=== PATIENT | female | born 1950 | race Caucasian/White ===

== ENCOUNTER 2016-12-25 14:04 | Emergency (ER) | payer OTHER ==
[~2016-12-25] VITALS: Ht 165.1 cm; Wt 54.1 kg
[~2016-12-25 14:04] MED LIST: LORA-741 PO
[2016-12-25 14:11] VITALS: TEMP 37.1; Ht 165.1 cm; Wt 54.1 kg
[2016-12-25] MEDS ORDERED: ALBUT/IPRATROP 3MG/0.5MG NEB 3 ML VIAL INH STA (14:11)
[2016-12-25] MEDS ORDERED: SODIUM CHLORIDE 0.9% 1000ML 1,000 ML IV STA (14:11)
--- NOTE | 2016-12-25 14:26 | EMERGENCY ROOM VISIT NOTE ---
History Report prepared by Janelle: Armin Patino Under the Supervision of: Dr. Darryl Rowland M.D. First contact with patient: 14:07 Stated Complaint: CHEST PAIN History of Present Illness The patient is a 66 year old female who presents to the Emergency Room with complaints of chest pain that began this morning 6 hours ago. Her pain has been constant since then, however, she states that currently she feels a lot better. She is not in any pain at this time, but she feels lightheaded. She denies any recent fevers, chills, nausea, abdominal pain, or abnormal urinary symptoms. She notes that she has been "spitting up phlegm," experiencing a cough, and having ingestion for about two months. She has a family history of cardiac disease/heart attacks and cancer, but none herself. She denies any history of diabetes, surgeries, or blood clots in her lungs or legs. She denies any recent long trips as well. She does not smoke, but she notes that her smokes in the house. She is on Lisinopril for her high blood pressure. She has as a history of arthritis as well. She took her Neurontin 2 hours ago. She has a history of panic attacks and anxiety. She adds that her tried to commit suicide a couple years ago, and she has a lot of nightmares about it still. Source of History: patient Onset: 6 hours ago Position: chest Symptom Intensity: minimal Quality: sharp Timing: resolved Associated Symptoms: + cough, + vomiting, No fevers, No chills, No nausea, No abdominal pain Review of Systems See HPI for pertinent positives and negatives. A total of ten systems were reviewed and were otherwise negative. Past Medical & Surgical Medical Problems: (1) Arthritis (2) HTN (hypertension) Family History Cancer Heart disease Social History Smoking Status: Never Smoker Smokeless Tobacco Use: No Alcohol Use: none Drug Use: none Marital Status: Housing Status: lives with significant other Occupation Status: retired Current/Historical Medications Scheduled Azithromycin (Azithromycin), 1 TAB PO DAILY Lisinopril (Prinivil), 10 MG PO DAILY Lorazepam (Ativan), 0.5 MG PO TID Allergies Coded Allergies: Aspirin (Unverified Allergy, Unknown, s, 12/25/16) Caffeine (Unverified Allergy, Unknown, rash, 12/25/16) Codeine (Unverified Allergy, Unknown, altered mental status, 12/25/16) Iodinated Diagnostic Agents (Unverified Allergy, Unknown, rash, 12/25/16) Physical Exam Vital Signs Date Time Temp Pulse Resp B/P (MAP) Pulse Ox O2 Delivery O2 Flow Rate FiO2 12/25/16 16:31 86 18 115/70 97 12/25/16 16:07 86 18 115/70 97 Room Air 12/25/16 14:57 94 20 131/74 97 Room Air 12/25/16 14:35 85 12/25/16 14:29 96 Room Air 12/25/16 14:11 37.1 74 18 136/81 96 Room Air Physical Exam GENERAL: Awake, alert, well-appearing, in no distress HENT: Normocephalic, atraumatic. Dry mucous membranes. EYES: Normal conjunctiva. Sclera non-icteric. NECK: Supple. No nuchal rigidity. FROM. No JVD. RESPIRATORY: Clear to auscultation. CARDIAC: Regular rate, normal rhythm. Extremities warm and well perfused. Pulses equal. ABDOMEN: Soft, non-distended. There is generalized abdominal discomfort to palpation with she states is her baseline, no pain at rest. No rebound or guarding. No masses. RECTAL: Deferred. MUSCULOSKELETAL: Chest examination reveals no tenderness. The back is symmetrical on inspection without obvious abnormality. There is no CVA tenderness to palpation. No joint edema. LOWER EXTREMITIES: Calves are equal size bilaterally and non-tender. No edema. No discoloration. NEURO: Normal sensorium. No sensory or motor deficits noted. SKIN: No rash or jaundice noted. Medical Decision & Procedures ER Provider Diagnostic Interpretation: Radiology results as stated below per my review and radiologist interpretation: SINGLE VIEW CHEST CLINICAL HISTORY: Atypical chest pain. FINDINGS: An AP, portable, upright chest radiograph is compared to study dated 06/30/2015. The examination is degraded by portable technique and patient rotation. The cardiomediastinal silhouette is unremarkable. The lungs are hyperinflated and hyperlucent with flattening of the diaphragm suggesting emphysema. Chronic interstitial thickening is similar to previous. No airspace consolidation, large pleural effusion, or pneumothorax is seen. The skeletal structures are osteopenic. The bony thorax is grossly intact. There is mild thoracic scoliosis. IMPRESSION: No acute cardiopulmonary abnormality. Electronically signed by: Nikhil Peters M.D. 12/25/2016 2:33 PM Dictated Date/Time: 12/25/2016 2:32 PM Laboratory Results 12/25/16 14:15 Red Blood Count 4.88, Mean Corpuscular Volume 85.0, Mean Corpuscular Hemoglobin 29.3, Mean Corpuscular Hemoglobin Concent 34.5, Mean Platelet Volume 10.3, Neutrophils (%) (Auto) 74.9, Lymphocytes (%) (Auto) 15.9, Monocytes (%) (Auto) 8.1, Eosinophils (%) (Auto) 0.7, Basophils (%) (Auto) 0.2, Neutrophils # (Auto) 4.35, Lymphocytes # (Auto) 0.92, Monocytes # (Auto) 0.47, Eosinophils # (Auto) 0.04, Basophils # (Auto) 0.01 12/25/16 14:15 Test 12/25/16 14:15 White Blood Count 5.80 K/uL (4.8-10.8) Red Blood Count 4.88 M/uL (4.2-5.4) Hemoglobin 14.3 g/dL (12.0-16.0) Hematocrit 41.5 % (37-47) Mean Corpuscular Volume 85.0 fL (80-100) Mean Corpuscular Hemoglobin 29.3 pg (25-34) Mean Corpuscular Hemoglobin Concent 34.5 g/dl (32-36) Platelet Count 189 K/uL (130-400) Mean Platelet Volume 10.3 fL (7.4-10.4) Neutrophils (%) (Auto) 74.9 % Lymphocytes (%) (Auto) 15.9 % Monocytes (%) (Auto) 8.1 % Eosinophils (%) (Auto) 0.7 % Basophils (%) (Auto) 0.2 % Neutrophils # (Auto) 4.35 K/uL (1.4-6.5) Lymphocytes # (Auto) 0.92 K/uL (1.2-3.4) Monocytes # (Auto) 0.47 K/uL (0.11-0.59) Eosinophils # (Auto) 0.04 K/uL (0-0.5) Basophils # (Auto) 0.01 K/uL (0-0.2) RDW Standard Deviation 41.3 fL (36.4-46.3) RDW Coefficient of Variation 13.4 % (11.5-14.5) Immature Granulocyte % (Auto) 0.2 % Immature Granulocyte # (Auto) 0.01 K/uL (0.00-0.02) Anion Gap 7.0 mmol/L (3-11) Est Creatinine Clear Calc Drug Dose 69.5 ml/min Estimated GFR () 105.6 Estimated GFR (Non- 91.2 BUN/Creatinine Ratio 10.4 (10-20) Calcium Level 9.3 mg/dl (8.5-10.1) Total Bilirubin 0.4 mg/dl (0.2-1) Direct Bilirubin 0.1 mg/dl (0-0.2) Aspartate Amino Transf (AST/SGOT) 23 U/L (15-37) Alanine Aminotransferase (ALT/SGPT) 15 U/L (12-78) Alkaline Phosphatase 73 U/L (45-117) Troponin I < 0.015 ng/ml (0-0.045) Total Protein 7.7 gm/dl (6.4-8.2) Albumin 4.1 gm/dl (3.4-5.0) Lipase 126 U/L (73-393) Laboratory results reviewed by me Medications Administered Medications (Trade) Dose Ordered Sig/Skinny Route Start Time Stop Time Status Last Admin Dose Admin Sodium Chloride 1,000 ml @ 999 mls/hr Q1H1M STAT IV 12/25/16 14:11 12/25/16 15:11 DC 12/25/16 14:28 999 MLS/HR Albuterol/ Ipratropium (Duoneb) 3 ml NOW STAT INH 12/25/16 14:11 12/25/16 14:20 DC 12/25/16 14:27 3 ML Albuterol (Ventolin Hfa Inhaler) 2 puffs NOW ONCE INH 12/25/16 16:00 12/25/16 16:01 DC 12/25/16 16:02 2 PUFFS Azithromycin (Zithromax Tab) 500 mg NOW ONCE PO 12/25/16 16:00 12/25/16 16:01 DC 12/25/16 16:02 500 MG ECG Indication: chest pain Rate (beats per minute): 78 Rhythm: normal sinus, other (Sinus arrhythmia) Findings: no acute ischemic change, other (Normal axis) ED Course 1407: The patient was evaluated in room A9B. A complete history and physical exam was performed. 1411: Ordered DuoNeb 3 ml INH, Sodium Chloride 1000 ml @ 999 mls/hr IV 1600: Ordered Zithromax Tab 500 mg PO, Albuterol 2 puffs INH 1615: I reevaluated the patient. Discussed results and discharge instructions: She verbalized understanding and agreement. The patient is ready for discharge. Medical Decision I reviewed the patient's past medical history, medications, and the nursing notes as described above. Differential diagnosis includes but is not limited to: pneumonia, bronchitis, acute coronary syndrome, pulmonary embolism, gastritis, dissection, aneurysm, musculoskeletal strain, and anxiety. The patient is a 66-year-old woman with a past medical history of anxiety presents to the emergency department with chest and back pain that started at 8 AM this morning and was constant until she took in Ativan around noon and by the time she arrived here her symptoms had resolved per history of present illness. Arrival of the patient is in no acute distress, afebrile with stable vital signs. Lungs are clear to auscultation bilaterally. EKG unremarkable with no signs of ischemia or infarct. The patient's report of constant pain for 6 hours prior to arrival, if troponin is negative her heart score would be 3 , low risk and thus could be discharged with a single troponin. Not tachy or hypoxic therefore PE not likely. Trop negative. CXR negative. Labs otherwise unremarkable. Findings and plan for follow-up d/w patient. Patient agreeable and d/c'd per discharge instructions. Medication Reconcilliation Current Medication List: was personally reviewed by me Blood Pressure Screening Patient's blood pressure: Normal blood pressure Blood pressure disposition: Did not require urgent referral Impression Primary Impression: Substernal precordial chest pain Additional Impression: Bronchitis Scribe Attestation The scribe's documentation has been prepared under my direction and personally reviewed by me in its entirety. I confirm that the note above accurately reflects all work, treatment, procedures, and medical decision making performed by me. Departure Information Dispostion Home / Self-Care Prescriptions Azithromycin (Azithromycin) 250 Mg Tab 1 TAB PO DAILY for 4 Days, #4 TABS Prov: Darryl Rowland M.D. 12/25/16 Referrals Dax Baez (PCP) Forms Call Back Authorization, HOME CARE DOCUMENTATION FORM, IMPORTANT VISIT INFORMATION Patient Instructions Chest Cold (Bronchitis) - [facility], Chest Pain - [facility], [facility] Additional Instructions Please follow up with your primary care physician in the next 1-3 days for re- evaluation. Your symptoms may be due to a bronchitis or possibly due to a panic attack. Otherwise, your exam, EKG, chest xray, and lab results did not show signs of an emergent condition at this time. Use inhaler 2 puffs every 4 hours as needed for cough and/or wheezing. Azithromycin antibiotic as directed. Return to the emergency department for worsening symptoms as described in the accompanying instructions. Problem Qualifiers
[2016-12-25 14:29] VITALS: O2SAT 96
[2016-12-25 14:33] LABS: BASO % 0.2 %; BASO ABS # 0.01 K/uL (0-0.2); COMPLETE YES; EOS % 0.7 %; HEMATOCRIT 41.5 % (37-47); IG% 0.2 %; LYMPH % 15.9 %; LYMPH ABS # 0.92 K/uL (1.2-3.4); MEAN CORPUSCULAR HEMOGLOBIN 29.3 pg (25-34); MEAN CORPUSCULAR HGB CONC 34.5 g/dl (32-36); MEAN PLATELET VOLUME 10.3 fL (7.4-10.4); MONO % 8.1 %; NEUT % 74.9 %; PLATELET COUNT 189 K/uL (130-400); RED BLOOD COUNT 4.88 M/uL (4.2-5.4)
--- NOTE | 2016-12-25 14:34 | DIAGNOSTIC IMAGING REPORT ---
SINGLE VIEW CHEST CLINICAL HISTORY: Atypical chest pain. FINDINGS: An AP, portable, upright chest radiograph is compared to study dated 06/30/2015. The examination is degraded by portable technique and patient rotation. The cardiomediastinal silhouette is unremarkable. The lungs are hyperinflated and hyperlucent with flattening of the diaphragm suggesting emphysema. Chronic interstitial thickening is similar to previous. No airspace consolidation, large pleural effusion, or pneumothorax is seen. The skeletal structures are osteopenic. The bony thorax is grossly intact. There is mild thoracic scoliosis. IMPRESSION: No acute cardiopulmonary abnormality. Electronically signed by: Nikhil Peters M.D. 12/25/2016 2:33 PM Dictated Date/Time: 12/25/2016 2:32 PM
[2016-12-25 14:46] LABS: ALT/SGPT 15 U/L (12-78); BLOOD UREA NITROGEN 7 mg/dl (7-18); BUN/CREATININE RATIO 10.4 (10-20); CALCIUM 9.3 mg/dl (8.5-10.1); CARBON DIOXIDE 27 mmol/L (21-32); CHLORIDE 110 mmol/L (98-107); CREATININE 0.68 mg/dl (0.60-1.20); GLUCOSE 101 mg/dl (70-99); POTASSIUM 3.9 mmol/L (3.5-5.1); SODIUM 145 mmol/L (136-145)
[2016-12-25 14:51] LABS: ALKALINE PHOSPHATASE 73 U/L (45-117); AST/SGOT 23 U/L (15-37)
[2016-12-25] MEDS ORDERED: LISI10TA PO (15:01)
[2016-12-25] MEDS ORDERED: ZTHM250 PO (15:54)
[2016-12-25] MEDS ORDERED: AZITHROMYCIN 250 MG TAB PO ONE (16:00)
[2016-12-25] MEDS ORDERED: ALBUTEROL HFA 8 GM INHALER INH ONE (16:00)
[2016-12-25 16:31] VITALS: BP 115/70; PULSE 86; O2SAT 97
== END 2016-12-25 16:31 | disposition home or self-care (01) ==
LOC: EDBD 14:04 → C.EDA 14:05
DX: R07.2 Precordial pain (principal); J40 Bronchitis, not specified as acute or chronic; I10 Essential (primary) hypertension

== ENCOUNTER 2021-08-21 16:07 | Observation (INO) ==
[2021-08-21] MEDS ORDERED: SODIUM CHLORIDE 0.9% 500 ML IV STA (16:41)
--- NOTE | 2021-08-21 16:48 | Emergency Department Note ---
History of Present Illness General Chief complaint: Back Injury/Pain Stated complaint: CANNOT WALK, UNSTABLE ON FEET, RIB PAIN, BACK PAIN Time Seen by Provider: 08/21/21 16:23 Source: patient Mode of arrival: ambulatory Limitations: no limitations History of Present Illness Maximum Pain Intensity: 10 This patient is a 70-year-old female who is brought in by her daughter after having weakness and difficult time ambulating and falling. She was hospitalized in [facility] about a month ago after she fell have back pain and had a tailbone fracture she went to rehab/long-term and apparently was able to walk but when the family got her home on Sunday they said she was unable to ambulate she fell again on her left side she has pain along the left anterior ribs family says she is not eating or drinking and they cannot care for her at home. She does not think she hit her head she has a mild headache mild neck pain no shortness of breath or chest pain she has some mild urinary discomfort at times but no hematu balbir. No fever. She bruised her arms bilaterally but has no significant pain she feels like she was dragging her left foot at one point. No acute change in vision no difficulty speaking or swallowing. She is on no blood thinners Home Medications Medication Instructions Recorded Confirmed Type cholecalciferol (vitamin D3) 25 25 mcg PO DAILY 08/21/21 08/21/21 History mcg (1,000 unit) capsule (Vitamin D3) escitalopram oxalate 10 mg tablet 10 mg PO DAILY 08/21/21 08/21/21 History gabapentin 100 mg capsule 100 mg PO TID 08/21/21 08/21/21 History lisinopril 10 mg tablet 10 mg PO DAILY 08/21/21 08/21/21 History metoprolol succinate 25 mg 25 mg PO DAILY 08/21/21 08/21/21 History tablet,extended release 24 hr multivitamin 1 tab PO DAILY 08/21/21 08/21/21 History sertraline 25 mg tablet 25 mg PO DAILY 08/21/21 08/21/21 History Allergies Allergy/AdvReac Type Severity Reaction Status Date / Time aspirin Allergy Intermediate Rash Verified 08/21/21 17:00 caffeine Allergy Intermediate Rash Verified 08/21/21 17:00 Iodinated Contrast Media Allergy Intermediate Rash Verified 08/21/21 17:00 codeine AdvReac Intermediate altered Verified 08/21/21 17:00 mental status Past Med/Surg History Medical History Anxiety Arthritis HTN (hypertension) Family History Other No significant family history Social History Smoking Status: Former smoker Preferred Language: [place] Feels Safe at Home: Yes Review of Systems A total of 10 systems reviewed and were otherwise negative Physical Exam Vital Signs Vital Signs - 24 hr 08/21/21 16:15 08/21/21 16:41 08/21/21 18:08 Temperature 36.4 C L Temperature Source Temporal Artery Scan Pulse Rate 91 H Pulse Rate [Left] 99 H Pulse Rhythm [Left] Regular Pulse Strength [Left] Normal Respiratory Rate 20 18 Respiratory Effort / Characteristics Non-Labored Non-Labored Spontaneous Respiratory Depth Normal Normal Respiratory Pattern Regular Blood Pressure 136/82 Blood Pressure [Right Arm] 120/75 Blood Pressure Mean 100 Blood Pressure Mean [Right Arm] 90 Blood Pressure Position [Right Arm] Sitting Pulse Oximetry 95 95 95 Oxygen Delivery Method Room Air Room Air Room Air Sepsis Recent Fever Within 48 Hours No Sepsis New/Unexplained Change in Mental Status No Sepsis Action Taken by Nursing No Action Required General: Well developed well nourished slender older female who appears in no acute distress, breathing comfortably on room air. Normal speech HEENT: Normal cephalic atraumatic. Pupils are equal round and reactive to light. Extraocular movements are intact. Oropharynx is pink with moist mucous membranes. No swelling of the mouth lips or tongue. Neck: Supple with a midline trachea. No meningeal signs or stiffness, no JVD or bruits. No Stridor. Chest: Clear to auscultation bilaterally. No wheezes or rhonchi. No increased work of breathing. No crepitus or subcutaneous air. Mildly tender in the anterior ribs without bruising. Heart: Regular rate and rhythm without murmurs or gallops. Abdomen: Soft nontender, nondistended without rebound guarding or rigidity. Extremities: No cyanosis clubbing or edema. No calf tenderness or assymetry. She does have bruising on her arms bilaterally Spine/Back. Non tender to palpation. No CVA tenderness Skin: Good turgor without rashes. Neurologic exam: Cranial nerves two through 12 are intact. Motor and sensation are intact and symmetrical throughout. Course Administered Medications Discontinued Medications Sodium Chloride (Nss) 500 mls @ 999 mls/hr IV .Q31M STA Stop: 08/21/21 17:11 Last Infusion: 08/21/21 17:40 Dose: 0 mls/hr Documented by: [id number] Admin: 08/21/21 17:09 Dose: 999 mls/hr Documented by: [id number] Ketorolac Tromethamine (Ketorolac Tromethamine 15 Mg/Ml Vial) 15 mg IV NOW ONE Stop: 08/21/21 20:16 Last Admin: 08/21/21 22:09 Dose: 15 mg Documented by: [id number] Medical Decision Making Differential Diagnosis Dehydration, electrolyte or metabolic abnormality, cardiac disease, traumatic injuries, rib fracture, pneumothorax, spine injury, head injury, neurologic process, spinal process Medical Records Attestation: I reviewed the patient's medical records. Home Medications Current Medication List: was personally reviewed by me Laboratory Data Attestation: I reviewed the patient's lab results. Result diagrams: 08/21/21 16:52 08/21/21 16:52 Lab Results 08/21/21 08/21/21 08/21/21 Range/Units 16:52 16:52 16:52 WBC 9.69 (4.8-10.8) K/uL RBC 3.92 L (4.2-5.4) M/uL Hgb 11.5 L (12.0-16.0) g/dL Hct 34.8 L (37-47) % MCV 88.8 (80-100) fL MCH 29.3 (25-34) pg MCHC 33.0 (32-36) g/dL RDW Std Deviation 45.9 (36.4-46.3) fL RDW Coeff of Yaron 14.1 (11.5-14.5) % Plt Count 391 (130-400) K/uL MPV 8.9 (7.4-10.4) fL Immature Gran % (Auto) 0.2 % Neut % (Auto) 73.7 % Lymph % (Auto) 17.4 % Hughes % (Auto) 8.2 % Eos % (Auto) 0.4 % Baso % (Auto) 0.1 % Neut # (Auto) 7.14 H (1.4-6.5) K/uL Lymph # (Auto) 1.69 (1.2-3.4) K/uL Hughes # (Auto) 0.79 H (0.11-0.59) K/uL Eos # (Auto) 0.04 (0-0.5) K/uL Baso # (Auto) 0.01 (0-0.2) K/uL Immature Gran # (Auto) 0.02 (0.00-0.02) K/uL Sodium 144 (136-145) mmol/L Potassium 3.9 (3.5-5.1) mmol/L Chloride 108 H (98-107) mmol/L Carbon Dioxide 26 (21-32) mmol/L Anion Gap 10 (3-11) BUN 12 (6-23) mg/dl Creatinine 0.64 (0.6-1.2) mg/dl Est Cr Clr Drug Dosing Not Reportable Est GFR ( Amer) 104.8 ml/min Est GFR (Non-Af Amer) 90.4 ml/min BUN/Creatinine Ratio 18.8 (10-20) Glucose 111 H (70-99(Fasting)) mg/dl Calcium 9.7 (8.5-10.1) mg/dl Magnesium 2.0 (1.7-2.4) mg/dl Total Bilirubin 0.4 (0.2-1.0) mg/dl AST 17 (13-39) U/L ALT 5 L (7-52) U/L Alkaline Phosphatase 139 H (34-104) U/L Troponin I High Sens 3.8 (0-14) pg/ml Total Protein 7.8 (6.0-8.3) gm/dl Albumin 4.1 (3.4-5.0) gm/dl Globulin 3.7 (2.5-4.0) gm/dl Albumin/Globulin Ratio 1.1 (0.9-2) Lipase 30 (11-82) U/L TSH (0.300-4.500) uIu/ml Urine Color Urine Appearance (Clear) Urine pH (4.5-7.5) Ur Specific Watson (1.000-1.030) Urine Protein (Negative) Urine Glucose (UA) (Negative) Urine Ketones (Negative) Urine Blood (Negative) Urine Nitrite (Negative) Urine Bilirubin (Negative) Urine Urobilinogen (Negative) Ur Leukocyte Esterase (Negative) Urine WBC (Auto) (0-5) /hpf Urine RBC (Auto) (0-4) /hpf U Hyaline Cast (Auto) (0-5) /lpf U Epithel Cells (Auto) (0-5) /lpf Urine Bacteria (Auto) (Negative) Urine Crystals Urine Yeast SARS-CoV-2, RNA, NAAT (NEGATIVE) 08/21/21 08/21/21 08/21/21 Range/Units 16:52 17:40 18:16 WBC (4.8-10.8) K/uL RBC (4.2-5.4) M/uL Hgb (12.0-16.0) g/dL Hct (37-47) % MCV (80-100) fL MCH (25-34) pg MCHC (32-36) g/dL RDW Std Deviation (36.4-46.3) fL RDW Coeff of Yaron (11.5-14.5) % Plt Count (130-400) K/uL MPV (7.4-10.4) fL Immature Gran % (Auto) % Neut % (Auto) % Lymph % (Auto) % Hughes % (Auto) % Eos % (Auto) % Baso % (Auto) % Neut # (Auto) (1.4-6.5) K/uL Lymph # (Auto) (1.2-3.4) K/uL Hughes # (Auto) (0.11-0.59) K/uL Eos # (Auto) (0-0.5) K/uL Baso # (Auto) (0-0.2) K/uL Immature Gran # (Auto) (0.00-0.02) K/uL Sodium (136-145) mmol/L Potassium (3.5-5.1) mmol/L Chloride (98-107) mmol/L Carbon Dioxide (21-32) mmol/L Anion Gap (3-11) BUN (6-23) mg/dl Creatinine (0.6-1.2) mg/dl Est Cr Clr Drug Dosing Est GFR ( Amer) ml/min Est GFR (Non-Af Amer) ml/min BUN/Creatinine Ratio (10-20) Glucose (70-99(Fasting)) mg/dl Calcium (8.5-10.1) mg/dl Magnesium (1.7-2.4) mg/dl Total Bilirubin (0.2-1.0) mg/dl AST (13-39) U/L ALT (7-52) U/L Alkaline Phosphatase (34-104) U/L Troponin I High Sens (0-14) pg/ml Total Protein (6.0-8.3) gm/dl Albumin (3.4-5.0) gm/dl Globulin (2.5-4.0) gm/dl Albumin/Globulin Ratio (0.9-2) Lipase (11-82) U/L TSH 0.751 (0.300-4.500) uIu/ml Urine Color Dark Yellow Urine Appearance Turbid A (Clear) Urine pH 7.0 (4.5-7.5) Ur Specific Watson 1.030 (1.000-1.030) Urine Protein 2+ H (Negative) Urine Glucose (UA) Negative (Negative) Urine Ketones 1+ H (Negative) Urine Blood Trace H (Negative) Urine Nitrite Negative (Negative) Urine Bilirubin Negative (Negative) Urine Urobilinogen Negative (Negative) Ur Leukocyte Esterase 2+ H (Negative) Urine WBC (Auto) >30 H (0-5) /hpf Urine RBC (Auto) 0-4 (0-4) /hpf U Hyaline Cast (Auto) 0 (0-5) /lpf U Epithel Cells (Auto) >30 H (0-5) /lpf Urine Bacteria (Auto) 4+ H (Negative) Urine Crystals Not Reportable Urine Yeast Not Reportable SARS-CoV-2, RNA, NAAT NEGATIVE (NEGATIVE) Imaging Data Attestation: I personally reviewed and interpreted this imaging study as follows: My Impression: Chest x-rayno acute infiltrate, failure, pneumothorax seen. Radiologist's Impression: Abdomen/Pelvis CT 08/21/21 16:41 CT SCAN OF THE CHEST, ABDOMEN, AND PELVIS WITHOUT IV CONTRAST; CT SCAN OF THE LUMBAR SPINE WITHOUT IV CONTRAST CLINICAL HISTORY: Trauma. Fall. COMPARISON STUDY: Chest x-ray dated 10/11/2018. TECHNIQUE: Unenhanced CT scan of the chest, abdomen, and pelvis was performed from the thoracic inlet to the proximal femora. Additionally, CT scan of the lumbar spine is performed from the lower thoracic spine to the sacrum. Images for these examinations are reviewed in the axial, sagittal, and coronal planes. IV contrast was not administered for these examinations. A dose lowering technique was utilized adhering to the principles of ALARA. Note that the examinations were performed in significantly suboptimal fashion without IV contrast. There is also streak artifact from the arms which could not be elevated above the chest or abdomen. CT DOSE: 1372.94 mGy.cm FINDINGS: CHEST: Thyroid: Imaged portions of the thyroid gland are normal in size and attenuation. Thoracic aorta: The thoracic aorta is normal in caliber and demonstrates standard 3-vessel arch anatomy. Heart: The heart is normal in size and without pericardial effusion. Lungs and pleural spaces: There is no airspace consolidation, pleural effusion, or pneumothorax. The trachea and central airways are clear. Mild scarring/atelectasis is noted at the lung bases. Mediastinum: There is no mediastinal hematoma or lymphadenopathy. Abena: Not well assessed without IV contrast. Axillae: There is no axillary lymphadenopathy. Bony thorax: The skeletal structures are osteopenic. Degenerative change and mild kyphoscoliosis is noted in the thoracic spine. There are acute nondisplaced left anterior 3rd through 7th rib fractures. There is a minimal chronic appearing superior endplate compression deformity of T12. The remainder of the bony thorax appears intact. No lytic or blastic lesions are identified. ABDOMEN AND PELVIS: Liver: The unenhanced liver is normal in size, contour, and attenuation. There is no intrahepatic biliary ductal dilatation. Gallbladder: Unremarkable. Spleen: Normal in size and attenuation. Pancreas: The unenhanced pancreas is moderately atrophic and grossly unremarkable. Adrenal glands: Unremarkable. Kidneys: The unenhanced kidneys demonstrate cortical atrophy and are without hydronephrosis. No renal calculi are identified. Cortical and renal sinus cysts of the left kidney measure up to 3.4 cm. Abdominal vasculature: The abdominal aorta is normal in course and caliber noting mild atherosclerotic calcification. Bowel: There are scattered colonic diverticula without CT evidence of acute diverticulitis. No bowel obstruction is seen. Mild fecal retention is noted throughout the colon. The appendix is not visualized. Peritoneum: There is no intraperitoneal free air or abdominal ascites. There is a small fat-containing umbilical hernia. Lymphadenopathy: None. Pelvic viscera: Evaluation of the pelvis is degraded by streak artifact from a right hip arthroplasty. The bladder wall appears circumferentially thickened and there is surrounding inflammation. Foci of gas are noted. The uterus is surgically absent. No adnexal lesion is seen. Skeletal structures: The skeletal structures are osteopenic. See below for dedicated assessment of the lumbar spine. There are age indeterminant bilateral sacral insufficiency fractures. There is angulation of the right of S2 with the fractures cross midline. The remainder of the bony pelvis appears intact, as do the proximal femora. Advanced arthritic change is seen in the left hip. A right hip arthroplasty is in place. No lytic or blastic lesion is seen. LUMBAR SPINE: Vertebral body height and alignment are maintained throughout the lumbar spine. There is no evidence of fracture or malalignment. The transverse and spinous processes are intact. Tiny anterior and lateral marginal osteophytes are seen throughout. There is no evidence of spondylolysis. The disc spaces are preserved. There is no evidence of large disc herniation or high-grade stenosis by CT. The paraspinous soft tissues are within normal limits. IMPRESSION: 1. Suboptimal examinations without IV contrast. The examinations are also degraded by streak artifact. 2. There are acute nondisplaced left-sided rib fractures as above. 3. There is no airspace consolidation, pleural effusion, or pneumothorax. 4. There is no evidence of solid organ injury in the abdomen or pelvis on this unenhanced examination. 5. There are age indeterminant bilateral sacral insufficiency fractures as above. 6. There is no evidence of fracture or malalignment involving the lumbar spine. 7. There is a minimal chronic appearing superior endplate compression deformity of T12. Correlate for point tenderness. 8. Question cystitis. Correlate with clinical findings and urinalysis. 9. Additional findings as above. ACT 112: Negative or not required by law. Electronically signed by: Nikhil Peters M.D. 08/21/2021 5:[address] 08/21/21 16:41 CT SCAN OF THE CERVICAL SPINE CLINICAL HISTORY: Fall. COMPARISON STUDY: No priors. TECHNIQUE: CT scan of the cervical spine is performed from the skull base to the upper thoracic spine. Images are reviewed in the axial, sagittal, and coronal planes. IV contrast was not administered for this examination. A dose lowering technique was utilized adhering to the principles of ALARA. FINDINGS: Skeletal structures: The skeletal structures are osteopenic. There is no evidence of fracture or subluxation involving the cervical spine. Vertebral body height and alignment are maintained. There is straightening of the cervical lordosis. Anterior osteophytes are seen throughout. There is extensive bony fusion seen throughout the posterior elements on the left. Milder fusion is seen on the right. The odontoid process and lateral masses are intact. The atlantoaxial articulation is preserved noting productive degenerative change. The spinous processes appear intact. There is moderate multilevel cervical spon dylosis. Uncovertebral and facet arthropathy contribute to neural foraminal narrowing at several levels. Intervertebral discs: There is moderate to severe disc space narrowing at C5-C6 and C6-C7. Mild disc space narrowing is seen at the remaining cervical levels. Central canal: Widely patent. Soft tissues: The prevertebral and paraspinous soft tissues are within normal limits. Calvarium: The visualized calvarium at the skull base appears intact. Brain parenchyma: Partially visualized brain parenchyma at the skull base is within normal limits. Sinuses and mastoids: The visualized paranasal sinuses are clear. The mastoid air cells are well pneumatized. Numerous dental caries are identified. Lung apices: Clear as visualized. IMPRESSION: 1. There is no evidence of fracture or subluxation involving the cervical spine. 2. Osteopenia and spondylotic change as above. 3. Numerous dental caries are identified. Follow-up with dentistry is recommended. ACT 112: Negative or not required by law. Electronically signed by: Nikhil Peters M.D. 08/21/2021 5:[address] 08/21/21 16:41 CT SCAN OF THE CHEST, ABDOMEN, AND PELVIS WITHOUT IV CONTRAST; CT SCAN OF THE LUMBAR SPINE WITHOUT IV CONTRAST CLINICAL HISTORY: Trauma. Fall. COMPARISON STUDY: Chest x-ray dated 10/11/2018. TECHNIQUE: Unenhanced CT scan of the chest, abdomen, and pelvis was performed from the thoracic inlet to the proximal femora. Additionally, CT scan of the lumbar spine is performed from the lower thoracic spine to the sacrum. Images for these examinations are reviewed in the axial, sagittal, and coronal planes. IV contrast was not administered for these examinations. A dose lowering technique was utilized adhering to the principles of ALARA. Note that the examinations were performed in significantly suboptimal fashion without IV contrast. There is also streak artifact from the arms which could not be elevated above the chest or abdomen. CT DOSE: 1372.94 mGy.cm FINDINGS: CHEST: Thyroid: Imaged portions of the thyroid gland are normal in size and attenuation. Thoracic aorta: The thoracic aorta is normal in caliber and demonstrates st andard 3-vessel arch anatomy. Heart: The heart is normal in size and without pericardial effusion. Lungs and pleural spaces: There is no airspace consolidation, pleural effusion, or pneumothorax. The trachea and central airways are clear. Mild scar ring/atelectasis is noted at the lung bases. Mediastinum: There is no mediastinal hematoma or lymphadenopathy. Abena: Not well assessed without IV contrast. Axillae: There is no axillary lymphadenopathy. Bony thorax: The skeletal structures are osteopenic. Degenerative change and mild kyphoscoliosis is noted in the thoracic spine. There are acute nondisplaced left anterior 3rd through 7th rib fractures. There is a minimal chronic appearing superior endplate compression deformity of T12. The remainder of the bony thorax appears intact. No lytic or blastic lesions are identified. ABDOMEN AND PELVIS: Liver: The unenhanced liver is normal in size, contour, and attenuation. There is no intrahepatic biliary ductal dilatation. Gallbladder: Unremarkable. Spleen: Normal in size and attenuation. Pancreas: The unenhanced pancreas is moderately atrophic and grossly unremarkable. Adrenal glands: Unremarkable. Kidneys: The unenhanced kidneys demonstrate cortical atrophy and are without hydronephrosis. No renal calculi are identified. Cortical and renal sinus cysts of the left kidney measure up to 3.4 cm. Abdominal vasculature: The abdominal aorta is normal in course and caliber noting mild atherosclerotic calcification. Bowel: There are scattered colonic diverticula without CT evidence of acute diverticulitis. No bowel obstruction is seen. Mild fecal retention is noted throughout the colon. The appendix is not visualized. Peritoneum: There is no intraperitoneal free air or abdominal ascites. There is a small fat-containing umbilical hernia. Lymphadenopathy: None. Pelvic viscera: Evaluation of the pelvis is degraded by streak artifact from a right hip arthroplasty. The bladder wall appears circumferentially thickened and there is surrounding inflammation. Foci of gas are noted. The uterus is surgically absent. No adnexal lesion is seen. Skeletal structures: The skeletal structures are osteopenic. See below for dedicated assessment of the lumbar spine. There are age indeterminant bilateral sacral insufficiency fractures. There is angulation of the right of S2 with the fractures cross midline. The remainder of the bony pelvis appears intact, as do the proximal femora. Advanced arthritic change is seen in the left hip. A right hip arthroplasty is in place. No lytic or blastic lesion is seen. LUMBAR SPINE: Vertebral body height and alignment are maintained throughout the lumbar spine. There is no evidence of fracture or malalignment. The transverse and spinous processes are intact. Tiny anterior and lateral marginal osteophytes are seen throughout. There is no evidence of spondylolysis. The disc spaces are preserved. There is no evidence of large disc herniation or high-grade stenosis by CT. The paraspinous soft tissues are within normal limits. IMPRESSION: 1. Suboptimal examinations without IV contrast. The examinations are also degraded by streak artifact. 2. There are acute nondisplaced left-sided rib fractures as above. 3. There is no airspace consolidation, pleural effusion, or pneumothorax. 4. There is no evidence of solid organ injury in the abdomen or pelvis on this unenhanced examination. 5. There are age indeterminant bilateral sacral insufficiency fractures as above. 6. There is no evidence of fracture or malalignment involving the lumbar spine. 7. There is a minimal chronic appearing superior endplate compression deformity of T12. Correlate for point tenderness. 8. Question cystitis. Correlate with clinical findings and urinalysis. 9. Additional findings as above. ACT 112: Negative or not required by law. Electronically signed by: Nikhil Peters M.D. 08/21/2021 5:50 PM Chest X-Ray 08/21/21 16:41 SINGLE VIEW CHEST CLINICAL HISTORY: Atypical chest pain. FINDINGS: An AP, portable, semierect chest radiograph is compared to study dated 10/11/2018 and correlated with chest CT performed the same day 08/21/2021. The cardiomediastinal silhouette is unremarkable. Chronic interstitial thickening is similar to previous. There is bibasilar scarring/atelectasis. The lungs and pleural spaces are otherwise clear. No pneumothorax is seen. The skeletal structures are osteopenic. The bony thorax is grossly intact. Subtle rib fractures seen on today's chest CT cannot be visualized by x-ray. IMPRESSION: No active disease in the chest. ACT 112: Negative or not required by law. Electronically signed by: Nikhil Peters M.D. 08/21/2021 6:[address] 08/21/21 16:41 CT SCAN OF THE BRAIN WITHOUT IV CONTRAST CLINICAL HISTORY: Fall. Generalized weakness. COMPARISON STUDY: No priors. TECHNIQUE: Unenhanced axial CT scan of the brain is performed from the vertex to the skull base. A dose lowering technique was utilized adhering to the principles of ALARA. FINDINGS: Brain parenchyma: There is age-related involutional change noting mild to mod erate subcortical and periventricular microangiopathic disease. There is no hemorrhage, mass effect, or evidence of acute territorial ischemia by CT criteria. Gonsalves-white matter differentiation is preserved. No extra-axial fluid collection is seen. Ventricles, sulci, cisterns: Prominent secondary to involutional change. Intracranial vasculature: There is atherosclerotic calcification of the cavernous carotid arteries. Calvarium: The skeletal structures are osteopenic. No depressed calvarial fracture is identified. Sinuses and mastoids: The visualized paranasal sinuses are clear. The mastoid air cells are well pneumatized. Orbits: The bony orbits are grossly intact. IMPRESSION: There is no hemorrhage, mass effect, or evidence of acute territorial ischemia by CT criteria. ACT 112: Negative or not required by law. Electronically signed by: Nikhil Peters M.D. 08/21/2021 5:[address] 08/21/21 16:41 CT SCAN OF THE CHEST, ABDOMEN, AND PELVIS WITHOUT IV CONTRAST; CT SCAN OF THE LUMBAR SPINE WITHOUT IV CONTRAST CLINICAL HISTORY: Trauma. Fall. COMPARISON STUDY: Chest x-ray dated 10/11/2018. TECHNIQUE: Unenhanced CT scan of the chest, abdomen, and pelvis was performed from the thoracic inlet to the proximal femora. Additionally, CT scan of the lumbar spine is performed from the lower thoracic spine to the sacrum. Images for these examinations are reviewed in the axial, sagittal, and coronal planes. IV contrast was not administered for these examinations. A dose lowering technique was utilized adhering to the principles of ALARA. Note that the examinations were performed in significantly suboptimal fashion without IV contrast. There is also streak artifact from the arms which could not be elevated above the chest or abdomen. CT DOSE: 1372.94 mGy.cm FINDINGS: CHEST: Thyroid: Imaged portions of the thyroid gland are normal in size and attenuation. Thoracic aorta: The thoracic aorta is normal in caliber and demonstrates standard 3-vessel arch anatomy. Heart: The heart is normal in size and without pericardial effusion. Lungs and pleural spaces: There is no airspace consolidation, pleural effusion, or pneumothorax. The trachea and central airways are clear. Mild sc arring/atelectasis is noted at the lung bases. Mediastinum: There is no mediastinal hematoma or lymphadenopathy. Abena: Not well assessed without IV contrast. Axillae: There is no axillary lymphadenopathy. Bony thorax: The skeletal structures are osteopenic. Degenerative change and mild kyphoscoliosis is noted in the thoracic spine. There are acute nondisplaced left anterior 3rd through 7th rib fractures. There is a minimal chronic appearing superior endplate compression deformity of T12. The remainder of the bony thorax appears intact. No lytic or blastic lesions are identified. ABDOMEN AND PELVIS: Liver: The unenhanced liver is normal in size, contour, and attenuation. There is no intrahepatic biliary ductal dilatation. Gallbladder: Unremarkable. Spleen: Normal in size and attenuation. Pancreas: The unenhanced pancreas is moderately atrophic and grossly unremarkable. Adrenal glands: Unremarkable. Kidneys: The unenhanced kidneys demonstrate cortical atrophy and are without hydronephrosis. No renal calculi are identified. Cortical and renal sinus cysts of the left kidney measure up to 3.4 cm. Abdominal vasculature: The abdominal aorta is normal in course and caliber noting mild atherosclerotic calcification. Bowel: There are scattered colonic diverticula without CT evidence of acute diverticulitis. No bowel obstruction is seen. Mild fecal retention is noted throughout the colon. The appendix is not visualized. Peritoneum: There is no intraperitoneal free air or abdominal ascites. There is a small fat-containing umbilical hernia. Lymphadenopathy: None. Pelvic viscera: Evaluation of the pelvis is degraded by streak artifact from a right hip arthroplasty. The bladder wall appears circumferentially thickened and there is surrounding inflammation. Foci of gas are noted. The uterus is surgically absent. No adnexal lesion is seen. Skeletal structures: The skeletal structures are osteopenic. See below for dedicated assessment of the lumbar spine. There are age indeterminant bilateral sacral insufficiency fractures. There is angulation of the right of S2 with the fractures cross midline. The remainder of the bony pelvis appears intact, as do the proximal femora. Advanced arthritic change is seen in the left hip. A right hip arthroplasty is in place. No lytic or blastic lesion is seen. LUMBAR SPINE: Vertebral body height and alignment are maintained throughout the lumbar spine. There is no evidence of fracture or malalignment. The transverse and spinous processes are intact. Tiny anterior and lateral marginal osteophytes are seen throughout. There is no evidence of spondylolysis. The disc spaces are preserved. There is no evidence of large disc herniation or high-grade stenosis by CT. The paraspinous soft tissues are within normal limits. IMPRESSION: 1. Suboptimal examinations without IV contrast. The examinations are also degraded by streak artifact. 2. There are acute nondisplaced left-sided rib fractures as above. 3. There is no airspace consolidation, pleural effusion, or pneumothorax. 4. There is no evidence of solid organ injury in the abdomen or pelvis on this unenhanced examination. 5. There are age indeterminant bilateral sacral insufficiency fractures as above. 6. There is no evidence of fracture or malalignment involving the lumbar spine. 7. There is a minimal chronic appearing superior endplate compression deformity of T12. Correlate for point tenderness. 8. Question cystitis. Correlate with clinical findings and urinalysis. 9. Additional findings as above. ACT 112: Negative or not required by law. Electronically signed by: Nikhil Peters M.D. 08/21/2021 5:50 PM ECG Data Attestation: I personally reviewed and interpreted this ECG as follows: Indication: + weakness Rate (beats per minute): 88 Rhythm: + normal sinus ECG Intervals/blocks: + Normal QRS, + Normal QT and + Normal [place] ECG [place]: + Normal ECG ST segments: + Normal ST segments ECG Findings: no PACs or no PVCs Comparison ECG Date: from (10/11/18) Change: no significant change MDM Narrative This patient comes in as described above . she has had weakness and falls and despite being in rehab/long-term is not doing well. She fell again. I did miller trauma scans without contrast as she is allergic to contrast. IV access was established. The only pain medication that she can take is Tylenol according to the daughter and just had it at 330 so she has not up for a dose yet. She does not appear to be significantly uncomfortable. She was gently hydrate with IV normal saline bolus. EKG urinalysis and multiple blood testing was obtained. She was reassessed frequently. EKG does not suggest acute coronary syndrome or arrhythmia. Troponin is not elevated. She has no white count or fever to chest infection. Her urinalysis does suggest a possible UTI. She did have several rib fractures on the left. She has the sacral fractures. She has degenerative changes. COVID testing was negative. She is having a difficult time caring for herself and fell again and I do think needs to be admitted for pain management and possibly placement. I have consulted Dr. Frias who saw the patient in ED for these measures Continuous cardiac monitoring: An order was placed in the EMR for continuous cardiac monitoring. Upon my evaluation the patient was noted to be in normal sinus rhythm with a rate of 80 Impression & Plan Fracture of rib of left side, Fall, Lab test negative for COVID-19 virus, Bilateral sacral insufficiency fracture, Weakness Discharge Plan Visit Data Chief Complaint: Back Injury/Pain Stated Complaint: CANNOT WALK, UNSTABLE ON FEET, RIB PAIN, BACK PAIN ED Provider: Den Capone Discharge Problem: Fracture of rib of left side, Fall, Lab test negative for COVID-19 virus, Bilateral sacral insufficiency fracture, Weakness Patient Disposition: Admitted As Inpatient Discharge Instructions Interventions: ED Discharge Assessment Last Done: 08/21/21 21:41 Discharge Problem: Fracture of rib of left side Qualifiers: Encounter type: initial encounter Rib fracture type: multiple ribs Fracture type: closed Qualified Code(s): S22.42XA - Multiple fractures of ribs, left side, initial encounter for closed fracture Fall Qualifiers: Encounter type: initial encounter Qualified Code(s): W19.XXXA - Unspecified fall, initial encounter Bilateral sacral insufficiency fracture Qualifiers: Encounter type: initial encounter Qualified Code(s): M84.48XA - Pathological fracture, other site, initial encounter for fracture
[2021-08-21 17:05] LABS: Basophils # (auto) 0.01 K/uL (0-0.2); Basophils % (auto) 0.1 %; Eosinophils # (auto) 0.04 K/uL (0-0.5); Eosinophils % (auto) 0.4 %; Hematocrit (blood only) 34.8 % (37-47); Hemoglobin 11.5 g/dL (12.0-16.0); Immature Granulocytes # (auto) 0.02 K/uL (0.00-0.02); Immature Granulocytes % (auto) 0.2 %; Lymphocytes # (auto) 1.69 K/uL (1.2-3.4); Lymphocytes % (auto) 17.4 %; Mean Corpuscular Hemoglobin 29.3 pg (25-34); Mean Corpuscular Volume 88.8 fL (80-100); Mean Platelet Volume 8.9 fL (7.4-10.4); Monocytes # (auto) 0.79 K/uL (0.11-0.59); Monocytes % (auto) 8.2 %; Neutrophils # (auto) 7.14 K/uL (1.4-6.5); Neutrophils % (auto) 73.7 %; Platelet Count 391 K/uL (130-400); RDW Coefficient of Variation 14.1 % (11.5-14.5); RDW Standard Deviation 45.9 fL (36.4-46.3); Red Blood Count 3.92 M/uL (4.2-5.4); White Blood Count 9.69 K/uL (4.8-10.8)
--- NOTE | 2021-08-21 17:25 | CT Scan Report ---
CT SCAN OF THE BRAIN WITHOUT IV CONTRAST CLINICAL HISTORY: Fall. Generalized weakness. COMPARISON STUDY: No priors. TECHNIQUE: Unenhanced axial CT scan of the brain is performed from the vertex to the skull base. A do se lowering technique was utilized adhering to the principles of ALARA. FINDINGS: Brain parenchyma: There is age-related involutional change noting mild to moderate subcortical and pe riventricular microangiopathic disease. There is no hemorrhage, mass effect, or evidence of acute ter ritorial ischemia by CT criteria. Gonsalves-white matter differentiation is preserved. No extra-axial flui d collection is seen. Ventricles, sulci, cisterns: Prominent secondary to involutional change. Intracranial vasculature: There is atherosclerotic calcification of the cavernous carotid arteries. Calvarium: The skeletal structures are osteopenic. No depressed calvarial fracture is identified. Sinuses and mastoids: The visualized paranasal sinuses are clear. The mastoid air cells are well pneu matized. Orbits: The bony orbits are grossly intact. IMPRESSION: There is no hemorrhage, mass effect, or evidence of acute territorial ischemia by CT bradley woodard. ACT 112: Negative or not required by law. Electronically signed by: Nikhil Peters M.D. 08/21/2021 5:22 PM
--- NOTE | 2021-08-21 17:29 | CT Scan Report ---
CT SCAN OF THE CERVICAL SPINE CLINICAL HISTORY: Fall. COMPARISON STUDY: No priors. TECHNIQUE: CT scan of the cervical spine is performed from the skull base to the upper thoracic spine . Images are reviewed in the axial, sagittal, and coronal planes. IV contrast was not administered fo r this examination. A dose lowering technique was utilized adhering to the principles of ALARA. FINDINGS: Skeletal structures: The skeletal structures are osteopenic. There is no evidence of fracture or subl uxation involving the cervical spine. Vertebral body height and alignment are maintained. There is st raightening of the cervical lordosis. Anterior osteophytes are seen throughout. There is extensive karen ny fusion seen throughout the posterior elements on the left. Milder fusion is seen on the right. The odontoid process and lateral masses are intact. The atlantoaxial articulation is preserved noting pr oductive degenerative change. The spinous processes appear intact. There is moderate multilevel cervi renetta spondylosis. Uncovertebral and facet arthropathy contribute to neural foraminal narrowing at zain ral levels. Intervertebral discs: There is moderate to severe disc space narrowing at C5-C6 and C6-C7. Mild disc space narrowing is seen at the remaining cervical levels. Central canal: Widely patent. Soft tissues: The prevertebral and paraspinous soft tissues are within normal limits. Calvarium: The visualized calvarium at the skull base appears intact. Brain parenchyma: Partially visualized brain parenchyma at the skull base is within normal limits. Sinuses and mastoids: The visualized paranasal sinuses are clear. The mastoid air cells are well pneu matized. Numerous dental caries are identified. Lung apices: Clear as visualized. IMPRESSION: 1. There is no evidence of fracture or subluxation involving the cervical spine. 2. Osteopenia and spondylotic change as above. 3. Numerous dental caries are identified. Follow-up with dentistry is recommended. ACT 112: Negative or not required by law. Electronically signed by: Nikhil Peters M.D. 08/21/2021 5:27 PM
[2021-08-21 17:42] LABS: Troponin I High Sensitivity 3.8 pg/ml (0-14)
--- NOTE | 2021-08-21 17:52 | CT Scan Report ---
CT SCAN OF THE CHEST, ABDOMEN, AND PELVIS WITHOUT IV CONTRAST; CT SCAN OF THE LUMBAR SPINE WITHOUT I V CONTRAST CLINICAL HISTORY: Trauma. Fall. COMPARISON STUDY: Chest x-ray dated 10/11/2018. TECHNIQUE: Unenhanced CT scan of the chest, abdomen, and pelvis was performed from the thoracic inlet to the proximal femora. Additionally, CT scan of the lumbar spine is performed from the lower thorac ic spine to the sacrum. Images for these examinations are reviewed in the axial, sagittal, and orellana l planes. IV contrast was not administered for these examinations. A dose lowering technique was util ized adhering to the principles of ALARA. Note that the examinations were performed in significantly suboptimal fashion without IV contrast. There is also streak artifact from the arms which could not b e elevated above the chest or abdomen. CT DOSE: 1372.94 mGy.cm FINDINGS: CHEST: Thyroid: Imaged portions of the thyroid gland are normal in size and attenuation. Thoracic aorta: The thoracic aorta is normal in caliber and demonstrates standard 3-vessel arch anato my. Heart: The heart is normal in size and without pericardial effusion. Lungs and pleural spaces: There is no airspace consolidation, pleural effusion, or pneumothorax. The trachea and central airways are clear. Mild scarring/atelectasis is noted at the lung bases. Mediastinum: There is no mediastinal hematoma or lymphadenopathy. Abena: Not well assessed without IV contrast. Axillae: There is no axillary lymphadenopathy. Bony thorax: The skeletal structures are osteopenic. Degenerative change and mild kyphoscoliosis is n oted in the thoracic spine. There are acute nondisplaced left anterior 3rd through 7th rib fractures. There is a minimal chronic appearing superior endplate compression deformity of T12. The remainder o f the bony thorax appears intact. No lytic or blastic lesions are identified. ABDOMEN AND PELVIS: Liver: The unenhanced liver is normal in size, contour, and attenuation. There is no intrahepatic jonathan iary ductal dilatation. Gallbladder: Unremarkable. Spleen: Normal in size and attenuation. Pancreas: The unenhanced pancreas is moderately atrophic and grossly unremarkable. Adrenal glands: Unremarkable. Kidneys: The unenhanced kidneys demonstrate cortical atrophy and are without hydronephrosis. No renal calculi are identified. Cortical and renal sinus cysts of the left kidney measure up to 3.4 cm. Abdominal vasculature: The abdominal aorta is normal in course and caliber noting mild atheroscleroti c calcification. Bowel: There are scattered colonic diverticula without CT evidence of acute diverticulitis. No bowel obstruction is seen. Mild fecal retention is noted throughout the colon. The appendix is not visuali zed. Peritoneum: There is no intraperitoneal free air or abdominal ascites. There is a small fat-containin g umbilical hernia. Lymphadenopathy: None. Pelvic viscera: Evaluation of the pelvis is degraded by streak artifact from a right hip arthroplasty . The bladder wall appears circumferentially thickened and there is surrounding inflammation. Foci of gas are noted. The uterus is surgically absent. No adnexal lesion is seen. Skeletal structures: The skeletal structures are osteopenic. See below for dedicated assessment of th e lumbar spine. There are age indeterminant bilateral sacral insufficiency fractures. There is angula tion of the right of S2 with the fractures cross midline. The remainder of the bony pelvis appears in tact, as do the proximal femora. Advanced arthritic change is seen in the left hip. A right hip arthr oplasty is in place. No lytic or blastic lesion is seen. LUMBAR SPINE: Vertebral body height and alignment are maintained throughout the lumbar spine. There i s no evidence of fracture or malalignment. The transverse and spinous processes are intact. Tiny ante rior and lateral marginal osteophytes are seen throughout. There is no evidence of spondylolysis. The disc spaces are preserved. There is no evidence of large disc herniation or high-grade stenosis by C T. The paraspinous soft tissues are within normal limits. IMPRESSION: 1. Suboptimal examinations without IV contrast. The examinations are also degraded by streak artifact . 2. There are acute nondisplaced left-sided rib fractures as above. 3. There is no airspace consolidation, pleural effusion, or pneumothorax. 4. There is no evidence of solid organ injury in the abdomen or pelvis on this unenhanced examination . 5. There are age indeterminant bilateral sacral insufficiency fractures as above. 6. There is no evidence of fracture or malalignment involving the lumbar spine. 7. There is a minimal chronic appearing superior endplate compression deformity of T12. Correlate for point tenderness. 8. Question cystitis. Correlate with clinical findings and urinalysis. 9. Additional findings as above. ACT 112: Negative or not required by law. Electronically signed by: Nikhil Peters M.D. 08/21/2021 5:50 PM
[2021-08-21 18:02] LABS: Alanine Aminotransferase 5 U/L (7-52); Albumin Globulin Ratio 1.1 (0.9-2); Albumin Level 4.1 gm/dl (3.4-5.0); Alkaline Phosphatase 139 U/L (34-104); Anion Gap 10 (3-11); Aspartate Aminotransferase 17 U/L (13-39); BUN Creatinine Ratio 18.8 (10-20); Bilirubin,Total 0.4 mg/dl (0.2-1.0); Blood Urea Nitrogen 12 mg/dl (6-23); Calcium 9.7 mg/dl (8.5-10.1); Carbon Dioxide 26 mmol/L (21-32); Chloride 108 mmol/L (98-107); Est GFR (African American) 104.8 ml/min; Est GFR (Non-African American) 90.4 ml/min; Globulin 3.7 gm/dl (2.5-4.0); Glucose 111 mg/dl (70-99(Fasting)); Lipase 30 U/L (11-82); Potassium 3.9 mmol/L (3.5-5.1); Sodium 144 mmol/L (136-145); Total Protein 7.8 gm/dl (6.0-8.3)
[2021-08-21 18:36] LABS: Appearance Urine Turbid (Clear); Bilirubin Urine Negative (Negative); Blood Urine Trace (Negative); Cast Urine Automated 0 /lpf (0-5); Color Urine Dark Yellow; Epithelial Cell Urine Auto >30 /lpf (0-5); Glucose Urine UA Negative (Negative); Ketones Urine 1+ (Negative); Leukocyte Esterase Urine 2+ (Negative); Nitrite Urine Negative (Negative); Protein Urine 2+ (Negative); Urobilinogen Urine Negative (Negative); WBC Urine Automated >30 /hpf (0-5)
--- NOTE | 2021-08-21 18:44 | XRay Report ---
SINGLE VIEW CHEST CLINICAL HISTORY: Atypical chest pain. FINDINGS: An AP, portable, semierect chest radiograph is compared to study dated 10/11/2018 and correl ated with chest CT performed the same day 08/21/2021. The cardiomediastinal silhouette is unremarkable. Chronic interstitial thickening is similar to previous. There is bibasilar scarring/atelectasis. The lungs and pleural spaces are otherwise clear. No pneumothorax is seen. The skeletal structures are o steopenic. The bony thorax is grossly intact. Subtle rib fractures seen on today's chest CT cannot be visualized by x-ray. IMPRESSION: No active disease in the chest. ACT 112: Negative or not required by law. Electronically signed by: Nikhil Peters M.D. 08/21/2021 6:42 PM
[2021-08-21 19:10] LABS: Bacteria Urine Automated 4+ (Negative); RBC Urine Automated 0-4 /hpf (0-4)
[2021-08-21] MEDS ORDERED: KETOROLAC TROMETHAMINE 15 MG/ML VIAL IV ONE (20:15)
--- NOTE | 2021-08-21 20:16 | History & Physical Report ---
Date of Service August 21, 2021 Assessment & Plan (1) Complicated UTI (urinary tract infection): Plan: No sepsis Traumatic L rib fracture, old sacral fracture Secondary to ambulatory dysfunction/recurrent falls hypertension, stable anxiety/mood disorder, at baseline DM2 diet-controlled, well-controlled as of recent hemoglobin A1c of 6.23 August 2020 chronic anemia, hemoglobin at baseline past tobacco abuse GMF Urine CS, ceftriaxone Lidoderm patch for rib fracture, analgesia Incentive spirometry Basal bolus insulin, ISS BG goal 1 10-1 40, carb count coverage, update hemoglobin A1c PT OT eval Social service re: possible placement if still recommended by PT OT DVT prophylaxis. Lovenox subcu Full code Patient daughter requesting updates from providers. Ms. Summer Patino, contact #[phone]. Text document was generated using [employer] voice recognition software. It may contain grammatical or spelling errors. Kindly contact undersigned for clarification of any documentation item in question. History of Present Illness Chief Complaint: Fall, left-sided chest pain Primary Care Provider: Brady Lee MD History obtained from patient, family, and records. Medical history significant for hypertension, anxiety/mood disorder, DM2 diet- controlled, chronic lung disease as per records, chronic anemia (baseline hemoglobin of 11), history sacral fracture/ambulatory dysfunction, past tobacco abuse. Recent confinement at [facility] last month for sacral fracture secondary to fall. No surgical intervention. Patient confined for 4 days then discharged to [facility] rehab facility in [place], [place] where she stayed the last 3 weeks. Patient family told she could be discharged home as patient able to walk with her walker. Patient discharged home 2 days ago. Patient unable to ambulate without assistance upon arrival at home as per daughter. Patient fell on her left side resulting in pleuritic left-sided chest pain with some shortness of breath. Patient not sure about head trauma. No LOC. Dysuria symptoms without abdominal/flank pain/hematuria/fever or chills. Patient brought to the ER for evaluation. Medical History as above Surgical History : BTL, hysterectomy, right hip surgery Family History : DM Personal/Social history : Past tobacco abuse, no EtOH intake, lives with her Allergies Allergy/AdvReac Type Severity Reaction Status Date / Time aspirin Allergy Intermediate Rash Verified 08/21/21 17:00 caffeine Allergy Intermediate Rash Verified 08/21/21 17:00 Iodinated Contrast Media Allergy Intermediate Rash Verified 08/21/21 17:00 codeine AdvReac Intermediate altered Verified 08/21/21 17:00 mental status Home Medications Medication Instructions Recorded Confirmed Type cholecalciferol (vitamin D3) 25 25 mcg PO DAILY 08/21/21 08/21/21 History mcg (1,000 unit) capsule (Vitamin D3) gabapentin 100 mg capsule 100 mg PO TID 08/21/21 08/21/21 History metoprolol succinate 25 mg 25 mg PO DAILY 08/21/21 08/21/21 History tablet,extended release 24 hr multivitamin 1 tab PO DAILY 08/21/21 08/21/21 History sertraline 25 mg tablet 25 mg PO DAILY 08/21/21 08/21/21 History ferrous sulfate 325 mg PO BID 08/22/21 08/22/21 History Past Med/Surg History Medical History Anxiety Arthritis HTN (hypertension) Family History Other No significant family history Social History Smoking Status: Former smoker Smoking End Date: 40 YEARS AGO; Hx Alcohol Use: No Hx Substance Use: No Preferred Language: [place]dean Communication Ability: Effective Hydrodynamics Teacher Required: No Beliefs That Will Affect Care: None Current Living Situation: Spouse Feels Safe at Home: Yes Safety Concerns: Feels Safe At This Time Assistive Devices: Glasses and Walker Review of Systems Review of Systems: As per HPI, all other systems reviewed and negative Physical Exam Physical Exam: GENERAL: Slightly unccomfortable, slightly anxious, no respiratory distress SKIN: Normal color, warm HEENT: Bespectacled, [place] palpebral conjunctivae, no ptosis, dry buccal mucosa NECK : Supple, no tenderness CHEST : Decreased breath sounds, left chest wall tenderness HEART : RRR, no obvious murmurs ABDOMEN: Some distention, nontender EXTREMITIES : No LE swelling/tenderness, no other conspicuous deformities noted NEUROLOGIC : Coherent, no facial asymmetry, intention tremors, gait and stance not assessed Results & Data Results & Data ([facility]) Vital Signs (Past 12 Hours) Vital Signs Temp Pulse Pulse Resp BP BP Pulse Ox 08/21/21 18:08 99 H 18 120/75 95 08/21/21 16:41 95 08/21/21 16:15 36.4 C L 91 H 20 136/82 95 Laboratory Results Laboratory Results WBC 9.69 K/uL (4.8-10.8) 08/21/21 16:52 RBC 3.92 M/uL (4.2-5.4) L 08/21/21 16:52 Hgb 11.5 g/dL (12.0-16.0) L 08/21/21 16:52 Hct 34.8 % (37-47) L 08/21/21 16:52 MCV 88.8 fL (80-100) 08/21/21 16:52 MCH 29.3 pg (25-34) 08/21/21 16:52 MCHC 33.0 g/dL (32-36) 08/21/21 16:52 RDW Std Deviation 45.9 fL (36.4-46.3) 08/21/21 16:52 RDW Coeff of Yaron 14.1 % (11.5-14.5) 08/21/21 16:52 Plt Count 391 K/uL (130-400) 08/21/21 16:52 MPV 8.9 fL (7.4-10.4) 08/21/21 16:52 Immature Gran % (Auto) 0.2 % 08/21/21 16:52 Neut % (Auto) 73.7 % 08/21/21 16:52 Lymph % (Auto) 17.4 % 08/21/21 16:52 [place] % (Auto) 8.2 % 08/21/21 16:52 Eos % (Auto) 0.4 % 08/21/21 16:52 Baso % (Auto) 0.1 % 08/21/21 16:52 Neut # (Auto) 7.14 K/uL (1.4-6.5) H 08/21/21 16:52 Lymph # (Auto) 1.69 K/uL (1.2-3.4) 08/21/21 16:52 [place] # (Auto) 0.79 K/uL (0.11-0.59) H 08/21/21 16:52 Eos # (Auto) 0.04 K/uL (0-0.5) 08/21/21 16:52 Baso # (Auto) 0.01 K/uL (0-0.2) 08/21/21 16:52 Immature Gran # (Auto) 0.02 K/uL (0.00-0.02) 08/21/21 16:52 Sodium 144 mmol/L (136-145) 08/21/21 16:52 Potassium 3.9 mmol/L (3.5-5.1) 08/21/21 16:52 Chloride 108 mmol/L (98-107) H 08/21/21 16:52 Carbon Dioxide 26 mmol/L (21-32) 08/21/21 16:52 Anion Gap 10 (3-11) 08/21/21 16:52 BUN 12 mg/dl (6-23) 08/21/21 16:52 Creatinine 0.64 mg/dl (0.6-1.2) 08/21/21 16:52 Est Cr Clr Drug Dosing Not Reportable 08/21/21 16:52 Est GFR ( Amer) 104.8 ml/min 08/21/21 16:52 Est GFR (Non-Af Amer) 90.4 ml/min 08/21/21 16:52 BUN/Creatinine Ratio 18.8 (10-20) 08/21/21 16:52 Glucose 111 mg/dl (70-99(Fasting)) H 08/21/21 16:52 Calcium 9.7 mg/dl (8.5-10.1) 08/21/21 16:52 Magnesium 2.0 mg/dl (1.7-2.4) 08/21/21 16:52 Total Bilirubin 0.4 mg/dl (0.2-1.0) 08/21/21 16:52 AST 17 U/L (13-39) 08/21/21 16:52 ALT 5 U/L (7-52) L 08/21/21 16:52 Alkaline Phosphatase 139 U/L (34-104) H 08/21/21 16:52 Troponin I High Sens 3.8 pg/ml (0-14) 08/21/21 16:52 Total Protein 7.8 gm/dl (6.0-8.3) 08/21/21 16:52 Albumin 4.1 gm/dl (3.4-5.0) 08/21/21 16:52 Globulin 3.7 gm/dl (2.5-4.0) 08/21/21 16:52 Albumin/Globulin Ratio 1.1 (0.9-2) 08/21/21 16:52 Lipase 30 U/L (11-82) 08/21/21 16:52 Urine Color Dark Yellow 08/21/21 18:16 Urine Appearance Turbid (Clear) A 08/21/21 18:16 Urine pH 7.0 (4.5-7.5) 08/21/21 18:16 Ur Specific [place] 1.030 (1.000-1.030) 08/21/21 18:16 Urine Protein 2+ (Negative) H 08/21/21 18:16 Urine Glucose (UA) Negative (Negative) 08/21/21 18:16 Urine Ketones 1+ (Negative) H 08/21/21 18:16 Urine Blood Trace (Negative) H 08/21/21 18:16 Urine Nitrite Negative (Negative) 08/21/21 18:16 Urine Bilirubin Negative (Negative) 08/21/21 18:16 Urine Urobilinogen Negative (Negative) 08/21/21 18:16 Ur Leukocyte Esterase 2+ (Negative) H 08/21/21 18:16 Urine WBC (Auto) >30 /hpf (0-5) H 08/21/21 18:16 Urine RBC (Auto) 0-4 /hpf (0-4) 08/21/21 18:16 U Hyaline Cast (Auto) 0 /lpf (0-5) 08/21/21 18:16 U Epithel Cells (Auto) >30 /lpf (0-5) H 08/21/21 18:16 Urine Bacteria (Auto) 4+ (Negative) H 08/21/21 18:16 Urine Crystals Not Reportable 08/21/21 18:16 Urine Yeast Not Reportable 08/21/21 18:16 SARS-CoV-2, RNA, NAAT NEGATIVE (NEGATIVE) 08/21/21 17:40 Impressions Abdomen/Pelvis CT 08/21/21 16:41 CT SCAN OF THE CHEST, ABDOMEN, AND PELVIS WITHOUT IV CONTRAST; CT SCAN OF THE LUMBAR SPINE WITHOUT IV CONTRAST CLINICAL HISTORY: Trauma. Fall. COMPARISON STUDY: Chest x-ray dated 10/11/2018. TECHNIQUE: Unenhanced CT scan of the chest, abdomen, and pelvis was performed from the thoracic inlet to the proximal femora. Additionally, CT scan of the lumbar spine is performed from the lower thoracic spine to the sacrum. Images for these examinations are reviewed in the axial, sagittal, and coronal planes. IV contrast was not administered for these examinations. A dose lowering technique was utilized adhering to the principles of ALARA. Note that the examinations were performed in significantly suboptimal fashion without IV contrast. There is also streak artifact from the arms which could not be elevated above the chest or abdomen. CT DOSE: 1372.94 mGy.cm FINDINGS: CHEST: Thyroid: Imaged portions of the thyroid gland are normal in size and atten uation. Thoracic aorta: The thoracic aorta is normal in caliber and demonstrates standard 3-vessel arch anatomy. Heart: The heart is normal in size and without pericardial effusion. Lungs and pleural spaces: There is no airspace consolidation, pleural effusion, or pneumothorax. The trachea and central airways are clear. Mild scarring/atelectasis is noted at the lung bases. Mediastinum: There is no mediastinal hematoma or lymphadenopathy. Abena: Not well assessed without IV contrast. Axillae: There is no axillary lymphadenopathy. Bony thorax: The skeletal structures are osteopenic. Degenerative change and mild kyphoscoliosis is noted in the thoracic spine. There are acute nondisplaced left anterior 3rd through 7th rib fractures. There is a minimal chronic appearing superior endplate compression deformity of T12. The remainder of the bony thorax appears intact. No lytic or blastic lesions are identified. ABDOMEN AND PELVIS: Liver: The unenhanced liver is normal in size, contour, and attenuation. There is no intrahepatic biliary ductal dilatation. Gallbladder: Unremarkable. Spleen: Normal in size and attenuation. Pancreas: The unenhanced pancreas is moderately atrophic and grossly unremarkable. Adrenal glands: Unremarkable. Kidneys: The unenhanced kidneys demonstrate cortical atrophy and are without hydronephrosis. No renal calculi are identified. Cortical and renal sinus cysts of the left kidney measure up to 3.4 cm. Abdominal vasculature: The abdominal aorta is normal in course and caliber noting mild atherosclerotic calcification. Bowel: There are scattered colonic diverticula without CT evidence of acute diverticulitis. No bowel obstruction is seen. Mild fecal retention is noted throughout the colon. The appendix is not visualized. Peritoneum: There is no intraperitoneal free air or abdominal ascites. There is a small fat-containing umbilical hernia. Lymphadenopathy: None. Pelvic viscera: Evaluation of the pelvis is degraded by streak artifact from a right hip arthroplasty. The bladder wall appears circumferentially thickened and there is surrounding inflammation. Foci of gas are noted. The uterus is surgically absent. No adnexal lesion is seen. Skeletal structures: The skeletal structures are osteopenic. See below for dedicated assessment of the lumbar spine. There are age indeterminant bilateral sacral insufficiency fractures. There is angulation of the right of S2 with the fractures cross midline. The remainder of the bony pelvis appears intact, as do the proximal femora. Advanced arthritic change is seen in the left hip. A right hip arthroplasty is in place. No lytic or blastic lesion is seen. LUMBAR SPINE: Vertebral body height and alignment are maintained throughout the lumbar spine. There is no evidence of fracture or malalignment. The transverse and spinous processes are intact. Tiny anterior and lateral marginal osteophytes are seen throughout. There is no evidence of spondylolysis. The disc spaces are preserved. There is no evidence of large disc herniation or high-grade stenosis by CT. The paraspinous soft tissues are within normal limits. IMPRESSION: 1. Suboptimal examinations without IV contrast. The examinations are also degraded by streak artifact. 2. There are acute nondisplaced left-sided rib fractures as above. 3. There is no airspace consolidation, pleural effusion, or pneumothorax. 4. There is no evidence of solid organ injury in the abdomen or pelvis on this unenhanced examination. 5. There are age indeterminant bilateral sacral insufficiency fractures as above. 6. There is no evidence of fracture or malalignment involving the lumbar spine. 7. There is a minimal chronic appearing superior endplate compression deformity of T12. Correlate for point tenderness. 8. Question cystitis. Correlate with clinical findings and urinalysis. 9. Additional findings as above. ACT 112: Negative or not required by law. Electronically signed by: Nikhil Peters M.D. 08/21/2021 5:[address] 08/21/21 16:41 CT SCAN OF THE CERVICAL SPINE CLINICAL HISTORY: Fall. COMPARISON STUDY: No priors. TECHNIQUE: CT scan of the cervical spine is performed from the skull base to the upper thoracic spine. Images are reviewed in the axial, sagittal, and coronal planes. IV contrast was not administered for this examination. A dose lowering technique was utilized adhering to the principles of ALARA. FINDINGS: Skeletal structures: The skeletal structures are osteopenic. There is no evidence of fracture or subluxation involving the cervical spine. Vertebral body height and alignment are maintained. There is straightening of the cervical lordosis. Anterior osteophytes are seen throughout. There is extensive bony fusion seen throughout the posterior elements on the left. Milder fusion is seen on the right. The odontoid process and lateral masses are intact. The atlantoaxial articulation is preserved noting productive degenerative change. The spinous processes appear intact. There is moderate multilevel cervical spondylosis. Uncovertebral and facet arthropathy contribute to neural foraminal narrowing at several levels. Intervertebral discs: There is moderate to severe disc space narrowing at C5-C6 and C6-C7. Mild disc space narrowing is seen at the remaining cervical levels. Central canal: Widely patent. Soft tissues: The prevertebral and paraspinous soft tissues are within normal limits. Calvarium: The visualized calvarium at the skull base appears intact. Brain parenchyma: Partially visualized brain parenchyma at the skull base is within normal limits. Sinuses and mastoids: The visualized paranasal sinuses are clear. The mastoid air cells are well pneumatized. Numerous dental caries are identified. Lung apices: Clear as visualized. IMPRESSION: 1. There is no evidence of fracture or subluxation involving the cervical spine. 2. Osteopenia and spondylotic change as above. 3. Numerous dental caries are identified. Follow-up with dentistry is recommended. ACT 112: Negative or not required by law. Electronically signed by: Nikhil Peters M.D. 08/21/2021 5:[address] 08/21/21 16:41 CT SCAN OF THE CHEST, ABDOMEN, AND PELVIS WITHOUT IV CONTRAST; CT SCAN OF THE LUMBAR SPINE WITHOUT IV CONTRAST CLINICAL HISTORY: Trauma. Fall. COMPARISON STUDY: Chest x-ray dated 10/11/2018. TECHNIQUE: Unenhanced CT scan of the chest, abdomen, and pelvis was performed from the thoracic inlet to the proximal femora. Additionally, CT scan of the lumbar spine is performed from the lower thoracic spine to the sacrum. Images for these examinations are reviewed in the axial, sagittal, and coronal planes. IV contrast was not administered for these examinations. A dose lowering technique was utilized adhering to the principles of ALARA. Note that the examinations were performed in significantly suboptimal fashion without IV contrast. There is also streak artifact from the arms which could not be elevated above the chest or abdomen. CT DOSE: 1372.94 mGy.cm FINDINGS: CHEST: Thyroid: Imaged portions of the thyroid gland are normal in size and attenuation. Thoracic aorta: The thoracic aorta is normal in caliber and demonstrates standard 3-vessel arch anatomy. Heart: The heart is normal in size and without pericardial effusion. Lungs and pleural spaces: There is no airspace consolidation, pleural effusion, or pneumothorax. The trachea and central airways are clear. Mild scarring/atelectasis is noted at the lung bases. Mediastinum: There is no mediastinal hematoma or lymphadenopathy. Abena: Not well assessed without IV contrast. Axillae: There is no axillary lymphadenopathy. Bony thorax: The skeletal structures are osteopenic. Degenerative change and mild kyphoscoliosis is noted in the thoracic spine. There are acute nondisplaced left anterior 3rd through 7th rib fractures. There is a minimal chronic appearing superior endplate compression deformity of T12. The remainder of the bony thorax appears intact. No lytic or blastic lesions are identified. ABDOMEN AND PELVIS: Liver: The unenhanced liver is normal in size, contour, and attenuation. There is no intrahepatic biliary ductal dilatation. Gallbladder: Unremarkable. Spleen: Normal in size and attenuation. Pancreas: The unenhanced pancreas is moderately atrophic and grossly unremarkable. Adrenal glands: Unremarkable. Kidneys: The unenhanced kidneys demonstrate cortical atrophy and are without hydronephrosis. No renal calculi are identified. Cortical and renal sinus cysts of the left kidney measure up to 3.4 cm. Abdominal vasculature: The abdominal aorta is normal in course and caliber noting mild atherosclerotic calcification. Bowel: There are scattered colonic diverticula without CT evidence of acute diverticulitis. No bowel obstruction is seen. Mild fecal retention is noted throughout the colon. The appendix is not visualized. Peritoneum: There is no intraperitoneal free air or abdominal ascites. There is a small fat-containing umbilical hernia. Lymphadenopathy: None. Pelvic viscera: Evaluation of the pelvis is degraded by streak artifact from a right hip arthroplasty. The bladder wall appears circumferentially thickened and there is surrounding inflammation. Foci of gas are noted. The uterus is surgically absent. No adnexal lesion is seen. Skeletal structures: The skeletal structures are osteopenic. See below for dedicated assessment of the lumbar spine. There are age indeterminant bilateral sacral insufficiency fractures. There is angulation of the right of S2 with the fractures cross midline. The remainder of the bony pelvis appears intact, as do the proximal femora. Advanced arthritic change is seen in the left hip. A right hip arthroplasty is in place. No lytic or blastic lesion is seen. LUMBAR SPINE: Vertebral body height and alignment are maintained throughout the lumbar spine. There is no evidence of fracture or malalignment. The transverse and spinous processes are intact. Tiny anterior and lateral marginal osteophytes are seen throughout. There is no evidence of spondylolysis. The disc spaces are preserved. There is no evidence of large disc herniation or high-grade stenosis by CT. The paraspinous soft tissues are within normal limits. IMPRESSION: 1. Suboptimal examinations without IV contrast. The examinations are also degraded by streak artifact. 2. There are acute nondisplaced left-sided rib fractures as above. 3. There is no airspace consolidation, pleural effusion, or pneumothorax. 4. There is no evidence of solid organ injury in the abdomen or pelvis on this unenhanced examination. 5. There are age indeterminant bilateral sacral insufficiency fractures as above. 6. There is no evidence of fracture or malalignment involving the lumbar spine. 7. There is a minimal chronic appearing superior endplate compression deformity of T12. Correlate for point tenderness. 8. Question cystitis. Correlate with clinical findings and urinalysis. 9. Additional findings as above. ACT 112: Negative or not required by law. Electronically signed by: Nikhil Peters M.D. 08/21/2021 5:50 PM Chest X-Ray 08/21/21 16:41 SINGLE VIEW CHEST CLINICAL HISTORY: Atypical chest pain. FINDINGS: An AP, portable, semierect chest radiograph is compared to study dated 10/11/2018 and correlated with chest CT performed the same day 08/21/2021. The cardiomediastinal silhouette is unremarkable. Chronic interstitial thickening is similar to previous. There is bibasilar scarring/atelectasis. The lungs and pleural spaces are otherwise clear. No pneumothorax is seen. The skeletal structures are osteopenic. The bony thorax is grossly intact. Subtle rib fractures seen on today's chest CT cannot be visualized by x-ray. IMPRESSION: No active disease in the chest. ACT 112: Negative or not required by law. Electronically signed by: Nikhil Peters M.D. 08/21/2021 6:[address] 08/21/21 16:41 CT SCAN OF THE BRAIN WITHOUT IV CONTRAST CLINICAL HISTORY: Fall. Generalized weakness. COMPARISON STUDY: No priors. TECHNIQUE: Unenhanced axial CT scan of the brain is performed from the vertex to the skull base. A dose lowering technique was utilized adhering to the principles of ALARA. FINDINGS: Brain parenchyma: There is age-related involutional change noting mild to moderate subcortical and periventricular microangiopathic disease. There is no hemorrhage, mass effect, or evidence of acute territorial ischemia by CT criteria. Gonsalves-white matter differentiation is preserved. No extra-axial fluid collection is seen. Ventricles, sulci, cisterns: Prominent secondary to involutional change. Intracranial vasculature: There is atherosclerotic calcification of the cavernous carotid arteries. Calvarium: The skeletal structures are osteopenic. No depressed calvarial fracture is identified. Sinuses and mastoids: The visualized paranasal sinuses are clear. The mastoid air cells are well pneumatized. Orbits: The bony orbits are grossly intact. IMPRESSION: There is no hemorrhage, mass effect, or evidence of acute territorial ischemia by CT criteria. ACT 112: Negative or not required by law. Electronically signed by: Nikhil Peters M.D. 08/21/2021 5:[address] 08/21/21 16:41 CT SCAN OF THE CHEST, ABDOMEN, AND PELVIS WITHOUT IV CONTRAST; CT SCAN OF THE LUMBAR SPINE WITHOUT IV CONTRAST CLINICAL HISTORY: Trauma. Fall. COMPARISON STUDY: Chest x-ray dated 10/11/2018. TECHNIQUE: Unenhanced CT scan of the chest, abdomen, and pelvis was performed from the thoracic inlet to the proximal femora. Additionally, CT scan of the lumbar spine is performed from the lower thoracic spine to the sacrum. Images for these examinations are reviewed in the axial, sagittal, and coronal planes. IV contrast was not administered for these examinations. A dose lowering technique was utilized adhering to the principles of ALARA. Note that the examinations were performed in significantly suboptimal fashion without IV contrast. There is also streak artifact from the arms which could not be elevated above the chest or abdomen. CT DOSE: 1372.94 mGy.cm FINDINGS: CHEST: Thyroid: Imaged portions of the thyroid gland are normal in size and attenuation. Thoracic aorta: The thoracic aorta is normal in caliber and demonstrates standard 3-vessel arch anatomy. Heart: The heart is normal in size and without pericardial effusion. Lungs and pleural spaces: There is no airspace consolidation, pleural effusion, or pneumothorax. The trachea and central airways are clear. Mild scarring /atelectasis is noted at the lung bases. Mediastinum: There is no mediastinal hematoma or lymphadenopathy. Abena: Not well assessed without IV contrast. Axillae: There is no axillary lymphadenopathy. Bony thorax: The skeletal structures are osteopenic. Degenerative change and mild kyphoscoliosis is noted in the thoracic spine. There are acute nondisplaced left anterior 3rd through 7th rib fractures. There is a minimal chronic appearing superior endplate compression deformity of T12. The remainder of the bony thorax appears intact. No lytic or blastic lesions are identified. Diagnostic Findings EKG as per my interpretation: Rate 90, NSR, normal axis, no ischemia
[2021-08-21] MEDS ORDERED: Patient's HEIGHT &/or WEIGHT Needed SCH (20:30)
[2021-08-21] MEDS ORDERED: cefTRIAXone SODIUM 1,000 MG in DEXTROSE 5% 50 ML IV STA (21:32)
[2021-08-21] MEDS ORDERED: PROMETHAZINE HCL 6.25 MG in SODIUM CHLORIDE 0.9% 50 ML IV PRN (21:59)
[2021-08-21] MEDS ORDERED: GLUCOSE 10 TABS/TUBE PO PRN (21:59)
[2021-08-21] MEDS ORDERED: KETOROLAC TROMETHAMINE 15 MG/ML VIAL IV PRN (21:59)
[2021-08-21] MEDS ORDERED: ACETAMINOPHEN 325 MG TAB PO PRN (21:59)
[2021-08-21] MEDS ORDERED: DEXTROSE 50% 50 ML SYRINGE IV PRN (21:59)
[2021-08-21] MEDS ORDERED: GLUCOSE 40% GEL 15 GM TUBE PO PRN (21:59)
[2021-08-21] MEDS ORDERED: CARBOHYDRATES FOR HYPOGLYCEMIA PO PRN (21:59)
[2021-08-21] MEDS ORDERED: IBUPROFEN 200 MG TAB PO PRN (21:59)
[2021-08-21] MEDS ORDERED: GLUCAGON FOR INJ 1 MG VIAL SQ PRN (21:59)
[2021-08-21] MEDS: LIDOCAINE 5% 1 PATCH TD SCH (22:47)
[2021-08-21] MEDS: GABAPENTIN 100 MG CAP PO SCH (22:47)
[2021-08-21] MEDS: INSULIN ASPART PER UNIT SC SCH (22:47)
[2021-08-22] MEDS ORDERED: SODIUM CHLORIDE 0.45 % 1,000 ML IV ONE (06:05)
[2021-08-22] MEDS: INSULIN GLARGINE SOLOSTAR 100 UNITS/ML 3 ML PEN SC SCH (06:18)
[2021-08-22 06:58] LABS: Basophils # (auto) 0.01 K/uL (0-0.2); Basophils % (auto) 0.2 %; Eosinophils % (auto) 1.6 %; Hematocrit (blood only) 31.2 % (37-47); Immature Granulocytes # (auto) 0.02 K/uL (0.00-0.02); Immature Granulocytes % (auto) 0.3 %; Lymphocytes # (auto) 1.35 K/uL (1.2-3.4); Lymphocytes % (auto) 21.8 %; Mean Corpuscular Hemoglobin 28.2 pg (25-34); Mean Corpuscular Hgb Conc 32.1 g/dL (32-36); Mean Corpuscular Volume 87.9 fL (80-100); Mean Platelet Volume 9.1 fL (7.4-10.4); Monocytes # (auto) 0.76 K/uL (0.11-0.59); Monocytes % (auto) 12.3 %; Neutrophils # (auto) 3.96 K/uL (1.4-6.5); Neutrophils % (auto) 63.8 %; Platelet Count 333 K/uL (130-400); RDW Coefficient of Variation 14.3 % (11.5-14.5); RDW Standard Deviation 46.5 fL (36.4-46.3); Red Blood Count 3.55 M/uL (4.2-5.4)
[2021-08-22 07:18] LABS: BUN Creatinine Ratio 18.5 (10-20); Calcium 8.7 mg/dl (8.5-10.1); Creatinine Clr Calc Pharmacy 62.6 ml/min; Est GFR (African American) 110.8 ml/min; Est GFR (Non-African American) 95.6 ml/min; Potassium 3.4 mmol/L (3.5-5.1)
[2021-08-22] MEDS: GABAPENTIN 100 MG CAP PO SCH ×3 (08:47→20:20)
[2021-08-22] MEDS: ENOXAPARIN INJ 30 MG/0.3 ML SYR SQ SCH (08:47)
[2021-08-22] MEDS: SERTRALINE HCL 50 MG TABLET PO SCH (08:49)
[2021-08-22] MEDS: METOPROLOL SUCC 25MG EXT REL TAB PO SCH (08:49)
[2021-08-22] MEDS: MULTIVITAMIN TAB PO SCH (08:50)
[2021-08-22] MEDS: CHOLECALCIFEROL 1,000 UNITS 25 MCG TAB PO SCH (08:50)
[2021-08-22] MEDS: INSULIN ASPART PER UNIT SC SCH ×4 (08:51→20:59)
[2021-08-22] MEDS: FERROUS SULFATE 325 MG TAB PO SCH ×2 (09:10→18:32)
[2021-08-22] MEDS ORDERED: POTASSIUM CHLORIDE CRTAB 20 MEQ TABCR PO STA (09:26)
[2021-08-22] MEDS: ACETAMINOPHEN 325 MG TAB PO PRN (16:06)
[2021-08-22] MEDS: LIDOCAINE 5% 1 PATCH TD SCH (20:20)
[2021-08-22] MEDS ORDERED: cefTRIAXone SODIUM 1,000 MG in DEXTROSE 5% 50 ML IV SCH (21:00)
--- NOTE | 2021-08-22 22:34 | Hospitalist Progress Note ---
Date of Service August 22, 2021 Assessment & Plan (1) Fracture of rib of left side: (2) Fall: (3) Weakness: Plan: Present on admission with fall associated with ambulatory dysfunction CT chest showed acute nondisplaced left-sided rib fractures Continue incentive spirometry Continue pain control PT/OT eval Fall precaution (4) Complicated UTI (urinary tract infection): Plan: UA positive for leukocytes and bacteria Currently on Ceftriaxone daily Urine cx pending Hypokalemia K 3.4, K replaced Continue monitor BMP HTN BP stable Continue Metoprolol Diabetes Will check Hba1c Continue Lantus and Novolog sliding scale Continue monitor BS Traumatic L rib fracture, old sacral fracture Secondary to ambulatory dysfunction/recurrent falls Hypertension Stable Anemia Hgb dropped from 11.5 to 10 Continue monitor DVT prophylaxis. Lovenox subcu Full code Daughter Ms. Summer Patino contact #[phone]. Admission and Anticipated Discharge Date Admission Date: August 21, 2021 Subjective Patient was seen and examined for follow-up of fall and left side rib pain Lying in bed with no acute distress eating lunch Pt said that she has tenderness in her left side with movement Denies any chest pain, palpitation, dizziness and SOB Review of Systems Review of Systems: All systems reviewed & are unremarkable except as noted in Subjective Physical Exam Physical Exam: General- No acute distress Head- atraumatic Eyes- PERRL, EOMI, ENT- oropharynx clear Neck- supple, no JVD Lungs- diminished BS, Left side rib pain Heart- regular rhythm; no murmur Abdomen- normal bowel sounds, soft, nontender Extremities- no calf tenderness Neuro- alert, oriented x 3; PERRL, EOMI; no facial palsy; no dysarthria Skin- warm & dry Results & Data Results & Data ([facility]) Vital Signs (Past 12 Hours) Vital Signs Temp Pulse Resp BP Pulse Ox 08/22/21 22:02 36.6 C 84 18 115/65 94 08/22/21 14:57 36.5 C 90 16 104/65 96 (1) Fracture of rib of left side Encounter type: initial encounter Fracture type: closed Rib fracture type: multiple ribs Qualified Code(s): S22.42XA - Multiple fractures of ribs, left side, initial encounter for closed fracture (2) Fall Encounter type: initial encounter Qualified Code(s): W19.XXXA - Unspecified fall, initial encounter
[2021-08-23 07:07] LABS: Hematocrit (blood only) 31.9 % (37-47); Mean Corpuscular Hemoglobin 27.3 pg (25-34); Mean Corpuscular Hgb Conc 31.3 g/dL (32-36); Mean Corpuscular Volume 87.2 fL (80-100); Mean Platelet Volume 9.3 fL (7.4-10.4); Platelet Count 346 K/uL (130-400); RDW Coefficient of Variation 14.1 % (11.5-14.5); RDW Standard Deviation 44.9 fL (36.4-46.3); Red Blood Count 3.66 M/uL (4.2-5.4); White Blood Count 6.84 K/uL (4.8-10.8)
[2021-08-23 07:34] LABS: BUN Creatinine Ratio 22.2 (10-20); Calcium 8.5 mg/dl (8.5-10.1); Creatinine Clr Calc Pharmacy 62.6 ml/min; Est GFR (African American) 110.8 ml/min; Est GFR (Non-African American) 95.6 ml/min; Potassium 3.8 mmol/L (3.5-5.1)
[2021-08-23] MEDS: SERTRALINE HCL 50 MG TABLET PO SCH (08:14)
[2021-08-23] MEDS: METOPROLOL SUCC 25MG EXT REL TAB PO SCH (08:14)
[2021-08-23] MEDS: GABAPENTIN 100 MG CAP PO SCH ×3 (08:15→19:39)
[2021-08-23] MEDS: MULTIVITAMIN TAB PO SCH (08:15)
[2021-08-23] MEDS: CHOLECALCIFEROL 1,000 UNITS 25 MCG TAB PO SCH (08:15)
[2021-08-23] MEDS: ENOXAPARIN INJ 30 MG/0.3 ML SYR SQ SCH (08:16)
[2021-08-23] MEDS: INSULIN GLARGINE SOLOSTAR 100 UNITS/ML 3 ML PEN SC SCH (08:31)
[2021-08-23] MEDS: INSULIN ASPART PER UNIT SC SCH ×4 (08:31→20:46)
[2021-08-23] MEDS: FERROUS SULFATE 325 MG TAB PO SCH ×2 (11:15→17:31)
[2021-08-23] MEDS: ACETAMINOPHEN 325 MG TAB PO PRN ×2 (11:18→19:38)
--- NOTE | 2021-08-23 18:55 | Hospitalist Progress Note ---
Date of Service August 23, 2021 Assessment & Plan (1) Fracture of rib of left side: (2) Fall: (3) Weakness: Plan: Present on admission with fall associated with ambulatory dysfunction CT chest showed acute nondisplaced left-sided rib fractures Continue incentive spirometry Continue pain control PT/OT on board - recommended inpatient rehab Fall precaution (4) Complicated UTI (urinary tract infection): Plan: UA positive for leukocytes and bacteria Currently on Ceftriaxone IV Urine cx grew proteus mirabilis Will transition to PO keflex Hypokalemia K 3.8 today Continue monitor BMP HTN BP stable Continue Metoprolol Diabetes Will check Hba1c Continue Lantus and Novolog sliding scale Continue monitor BS Hypertension Stable Anemia Hgb stable at 10 Continue monitor DVT prophylaxis. Lovenox subcu Full code Daughter Ms. Summer Patino contact #[phone]. Admission and Anticipated Discharge Date Admission Date: August 21, 2021 Subjective Patient was seen and examined for follow-up of fall and left side rib pain Lying in bed with no acute distress She said that she had pain when she tried to stand up at the edge of the bed Denies any chest pain, palpitation, dizziness and SOB Review of Systems Review of Systems: All systems reviewed & are unremarkable except as noted in Subjective Physical Exam Physical Exam: General- No acute distress Head- atraumatic Eyes- PERRL, EOMI, ENT- oropharynx clear Neck- supple, no JVD Lungs- diminished BS, Left side rib pain Heart- regular rhythm; no murmur Abdomen- normal bowel sounds, soft, nontender Extremities- no calf tenderness Neuro- alert, oriented x 3; PERRL, EOMI; no facial palsy; no dysarthria Skin- warm & dry Results & Data Results & Data ([facility]) Vital Signs (Past 12 Hours) Vital Signs Temp Pulse Resp BP Pulse Ox 08/23/21 06:56 36.3 C L 86 16 119/67 94 (1) Fracture of rib of left side Encounter type: initial encounter Fracture type: closed Rib fracture type: multiple ribs Qualified Code(s): S22.42XA - Multiple fractures of ribs, left side, initial encounter for closed fracture (2) Fall Encounter type: initial encounter Qualified Code(s): W19.XXXA - Unspecified fall, initial encounter
--- NOTE | 2021-08-23 19:05 | Electrocardiogram Report ---
Test Reason : Blood Pressure : / mmHG Vent. Rate : 088 BPM Atrial Rate : 088 BPM P-R Int : 142 ms QRS Dur : 070 ms QT Int : 362 ms P-R-T Axes : 041 035 045 degrees QTc Int : 438 ms Normal sinus rhythm Normal ECG When compared with ECG of 11-OCT-2018 16:09, No significant change was found Confirmed by Kiel Al ([id number]) on 08/23/2021 7:04:38 PM Referred By: REFERRED SELF Confirmed By:Kiel Al
[2021-08-23] MEDS: cephALEXin 500 MG CAP PO SCH (19:39)
[2021-08-23] MEDS: LIDOCAINE 5% 1 PATCH TD SCH (19:40)
[2021-08-24] MEDS: ACETAMINOPHEN 325 MG TAB PO PRN ×3 (05:21→20:15)
[2021-08-24] MEDS: INSULIN ASPART PER UNIT SC SCH ×4 (08:38→21:11)
[2021-08-24] MEDS: INSULIN GLARGINE SOLOSTAR 100 UNITS/ML 3 ML PEN SC SCH (08:39)
[2021-08-24] MEDS: ENOXAPARIN INJ 30 MG/0.3 ML SYR SQ SCH (08:46)
[2021-08-24] MEDS: cephALEXin 500 MG CAP PO SCH ×2 (08:47→20:17)
[2021-08-24] MEDS: GABAPENTIN 100 MG CAP PO SCH ×3 (08:47→20:16)
[2021-08-24] MEDS: METOPROLOL SUCC 25MG EXT REL TAB PO SCH (08:48)
[2021-08-24] MEDS: CHOLECALCIFEROL 1,000 UNITS 25 MCG TAB PO SCH (08:48)
[2021-08-24] MEDS: MULTIVITAMIN TAB PO SCH (08:48)
[2021-08-24] MEDS: FERROUS SULFATE 325 MG TAB PO SCH ×2 (08:49→17:58)
[2021-08-24] MEDS: SERTRALINE HCL 50 MG TABLET PO SCH (08:49)
[2021-08-24] MEDS: KETOROLAC TROMETHAMINE 15 MG/ML VIAL IV PRN ×2 (12:09→23:07)
--- NOTE | 2021-08-24 17:12 | Hospitalist Progress Note ---
Date of Service August 24, 2021 Assessment & Plan (1) Fracture of rib of left side: (2) Fall: (3) Weakness: Plan: Present on admission with fall associated with ambulatory dysfunction CT chest showed acute nondisplaced left-sided rib fractures Continue incentive spirometry Continue pain control PT/OT on board - recommended inpatient rehab Fall precaution Waiting for placement to rehab (4) Complicated UTI (urinary tract infection): Plan: UA positive for leukocytes and bacteria Currently on Ceftriaxone IV Urine cx grew proteus mirabilis Transition to PO keflex, will complete the course Hypokalemia K 3.8 Continue monitor BMP HTN BP stable Continue Metoprolol Diabetes Will check Hba1c Continue Lantus and Novolog sliding scale Continue monitor BS Hypertension Stable Anemia Hgb stable at 10 Continue monitor DVT prophylaxis. Lovenox subcu Full code Disposition waiting for placement Daughter Ms. Summer Patino contact #[phone]. Admission and Anticipated Discharge Date Admission Date: August 21, 2021 Subjective Patient was seen and examined for follow-up of fall and left side rib pain Sitting at the edge of the bed with no acute distress She said that pain seems to improves She was able to participate in therapy Denies any chest pain, palpitation, dizziness and SOB Review of Systems Review of Systems: All systems reviewed & are unremarkable except as noted in Subjective Physical Exam Physical Exam: General- No acute distress Head- atraumatic Eyes- PERRL, EOMI, ENT- oropharynx clear Neck- supple, no JVD Lungs- diminished BS, Left side rib pain Heart- regular rhythm; no murmur Abdomen- normal bowel sounds, soft, nontender Extremities- no calf tenderness Neuro- alert, oriented x 3; PERRL, EOMI; no facial palsy; no dysarthria Skin- warm & dry Results & Data Results & Data ([facility]) Vital Signs (Past 12 Hours) Vital Signs Temp Pulse Resp BP Pulse Ox 08/24/21 16:27 36.8 C 70 18 116/75 96 08/24/21 07:14 36.3 C L 71 16 131/79 96 (1) Fracture of rib of left side Encounter type: initial encounter Fracture type: closed Rib fracture type: multiple ribs Qualified Code(s): S22.42XA - Multiple fractures of ribs, left side, initial encounter for closed fracture (2) Fall Encounter type: initial encounter Qualified Code(s): W19.XXXA - Unspecified fall, initial encounter
[2021-08-24] MEDS: LIDOCAINE 5% 1 PATCH TD SCH (20:16)
[2021-08-25] MEDS: KETOROLAC TROMETHAMINE 15 MG/ML VIAL IV PRN (08:04)
[2021-08-25] MEDS: FERROUS SULFATE 325 MG TAB PO SCH ×2 (08:40→17:45)
[2021-08-25] MEDS: cephALEXin 500 MG CAP PO SCH ×2 (08:40→19:48)
[2021-08-25] MEDS: CHOLECALCIFEROL 1,000 UNITS 25 MCG TAB PO SCH (08:41)
[2021-08-25] MEDS: ENOXAPARIN INJ 30 MG/0.3 ML SYR SQ SCH (08:42)
[2021-08-25] MEDS: GABAPENTIN 100 MG CAP PO SCH ×3 (08:42→19:48)
[2021-08-25] MEDS: MULTIVITAMIN TAB PO SCH (08:42)
[2021-08-25] MEDS: METOPROLOL SUCC 25MG EXT REL TAB PO SCH (08:43)
[2021-08-25] MEDS: SERTRALINE HCL 50 MG TABLET PO SCH (08:43)
[2021-08-25 08:50] LABS: Hematocrit (blood only) 32.2 % (37-47); Hemoglobin 10.2 g/dL (12.0-16.0); Mean Corpuscular Hemoglobin 27.7 pg (25-34); Mean Corpuscular Hgb Conc 31.7 g/dL (32-36); Mean Corpuscular Volume 87.5 fL (80-100); Mean Platelet Volume 9.4 fL (7.4-10.4); Platelet Count 333 K/uL (130-400); RDW Coefficient of Variation 14.2 % (11.5-14.5); RDW Standard Deviation 45.3 fL (36.4-46.3); Red Blood Count 3.68 M/uL (4.2-5.4); White Blood Count 4.96 K/uL (4.8-10.8)
[2021-08-25] MEDS: INSULIN GLARGINE SOLOSTAR 100 UNITS/ML 3 ML PEN SC SCH (08:50)
[2021-08-25] MEDS: INSULIN ASPART PER UNIT SC SCH ×4 (08:54→21:10)
[2021-08-25 09:22] LABS: BUN Creatinine Ratio 30.2 (10-20); Calcium 8.8 mg/dl (8.5-10.1); Creatinine Clr Calc Pharmacy 53.6 ml/min; Est GFR (African American) 105.3 ml/min; Est GFR (Non-African American) 90.9 ml/min; Potassium 4.6 mmol/L (3.5-5.1)
[2021-08-25 09:42] LABS: Estimated Average Glucose 143 mg/dl; Hemoglobin A1C 6.6 % (4.5-5.6)
[2021-08-25] MEDS: ACETAMINOPHEN 325 MG TAB PO PRN (13:00)
--- NOTE | 2021-08-25 17:40 | Hospitalist Progress Note ---
Date of Service August 25, 2021 Assessment & Plan (1) Ambulatory dysfunction: Plan: Ambulating independently and a very active lady until she fell and suffered a sacral insufficiency fracture. She has persistent pain and issues with mobility as a result of this and now has fallen at home with additional traumatic rib fractures causing additional pain and mobility issues. Cont supportive care with scheduled APAP. (2) Fall: Plan: Mechanical fall at home recurrent. Patient needs better pain control first prior to discharge to rehab in order to be able to participate. Increased tylenol to scheduled. No NSAIDs or narcotics to be given at this time per her request. Seems like Toradol is ok as an option though. (3) Fracture of rib of left side: Plan: sequelaew of mechanical fall, no PTX or hemothorax and healing well. Cont supportive care. (4) Bilateral sacral insufficiency fracture: Plan: nonoperable, supportive care, rehab (5) Complicated UTI (urinary tract infection): Plan: UA positive for leukocytes and bacteria Currently on Ceftriaxone IV Urine cx grew proteus mirabilis Transition to PO keflex, will complete the course (6) DMII (diabetes mellitus, type 2): Plan: A1C is 6.6 so she has DMII but is not on medication for this. Stop carb coverage and glargine at this time. Cont with corrective insulin only as needed with loose coverage. She will discuss further treatment options with her PCP as outpatient. (7) Anemia: Plan: chronic, stable. cont monitoring. (8) DVT prophylaxis: Plan: Lovenox Full Code Dispo-to rehab pending covid vaccination which she is considering. She is preferring the Pfizer series, however, which is not available at this facility. Daughter is also wroking out a copay situation prior to discharge. She needs to have better controlled pain prior to discharge to ensure rehab is effective and worth the time. Carin Frias DO [facility]ist Admission and Anticipated Discharge Date Admission Date: August 21, 2021 Subjective 70 yo F admitted for persistent ambulatory dysfunction after a hip surgery in the past and recurrent falls with associated trauma. She has pain wtih movement in her ribs and in her tailbone from fractures associated wtih falls she is concerned about taking NSAIDs because of side effects She is concerned about taking narcotics because of the possibility of becoming addicted. We decided on [facility] [place] [facility] APAP to help control her pain more effectively. She is unable to get out of bed independently with ease but is using the bedside commode She is tolerating PO Pain is very uncontrolled with movement limiting what she can do. +left sided chest pain back pain in tailbone with movement or lifting her left leg up. Review of Systems Review of Systems: All systems were reviewed and negative except as indicated in subjective abov.e Physical Exam Physical Exam: CONSTITUTIONAL: WNWD, vitals as above, generally well- appearing, +mod distress wtih any movement outside of a supine position with slightly raised HOB EYES: normal conjunctivae, no scleral icterus ENT: external ear and nose normal, MMM NECK: trachea midline RESPIRATORY: clear to auscultation bilaterally, no crackles, rales or wheezes, normal respiratory effort CARDIOVASCULAR: regular rate and rhythm, S1 and 2 heard without murmurs, gallops or rubs, no JVD, no peripheral edema GASTROINTESTINAL: soft, nontender, ND, no guarding MUSCULOSKELETAL: strength 5/5 throughout, head is normocephalic and atraumatic SKIN: warm and dry NEUROLOGIC: CN 2-12 grossly intact, no sensory deficit, normal cognition, normal speech, no tremor PSYCHIATRIC: alert cooperative and oriented to person, place and time. Euthymic mood, makes good eye contact, language grossly intact, recent and remote memory grossly intact. Results & Data Results & Data ([facility]) Vital Signs (Past 12 Hours) Vital Signs Temp Pulse Pulse Resp BP Pulse Ox 08/25/21 16:00 36.6 C 81 20 149/89 H 97 08/25/21 08:40 89 123/69 08/25/21 07:30 36.9 C 74 16 109/73 95 Laboratory Results Short CBC 08/25/21 Range/Units 07:42 WBC 4.96 (4.8-10.8) K/uL Hgb 10.2 L (12.0-16.0) g/dL Hct 32.2 L (37-47) % Plt Count 333 (130-400) K/uL BMP 08/25/21 07:42 Sodium 140 Potassium 4.6 Chloride 108 H Carbon Dioxide 28 BUN 19 Creatinine 0.63 Glucose 103 H Calcium 8.8 Medications Administered Current Inpatient Medications Acetaminophen (Acetaminophen 325 Mg Tab) 650 mg PO Q4H PRN PRN Reason: pain/fever (mild pain) Stop: 09/20/21 21:58 Last Admin: 08/25/21 13:00 Dose: 650 mg Documented by: Cephalexin HCl (Cephalexin 500 Mg Cap) 500 mg PO BID [facility] Stop: 09/02/21 20:59 Last Admin: 08/25/21 08:40 Dose: 500 mg Documented by: Dextrose (Dextrose 50% 50 Ml Syringe) 25 - 50 ml IV UD PRN; Protocol PRN Reason: Hypoglycemia Protocol Stop: 09/20/21 21:58 Enoxaparin Sodium (Enoxaparin Inj 30 Mg/0.3 Ml Syr) 30 mg SQ QAM [facility] Stop: 09/21/21 08:59 Last Admin: 08/25/21 08:42 Dose: 30 mg Documented by: Ferrous Sulfate (Ferrous Sulfate 325 Mg Tab) 325 mg PO BIDM [facility] Stop: 09/21/21 07:59 Last Admin: 08/25/21 08:40 Dose: 325 mg Documented by: Gabapentin (Gabapentin 100 Mg Cap) 100 mg PO TID [facility] Stop: 09/20/21 21:58 Last Admin: 08/25/21 14:23 Dose: 100 mg Documented by: Glucagon (Glucagon For Inj 1 Mg Vial) 1 mg SQ UD PRN; Protocol PRN Reason: Hypoglycemia Protocol Stop: 09/20/21 21:58 Glucose (Glucose 10 Tabs/Tube) 4 - 8 tabs PO UD PRN; Protocol PRN Reason: Hypoglycemia Protocol Stop: 09/20/21 21:58 Glucose (Glucose 40% Gel 15 Gm Tube) 15 - 30 gm PO UD PRN; Protocol PRN Reason: Hypoglycemia Protocol Stop: 09/20/21 21:58 Promethazine HCl 6.25 mg/ (Sodium Chloride) 50.25 mls @ 201 mls/hr IV Q6H PRN PRN Reason: Nausea And Vomiting Stop: 09/20/21 21:58 Ibuprofen (Ibuprofen 200 Mg Tab) 200 mg PO Q6H PRN PRN Reason: Mild Pain Stop: 09/20/21 21:58 Insulin Aspart (Insulin Aspart Per Unit) 0 units SC ACHS [facility] Stop: 09/20/21 21:58 Last Admin: 08/25/21 12:47 Dose: 2 units Documented by: Insulin Glargine (Insulin Glargine Solostar 100 Units/Ml 3 Ml Pen) 5 units SC DAILY [facility] Stop: 09/21/21 06:04 Last Admin: 08/25/21 08:50 Dose: 5 units Documented by: Ketorolac Tromethamine (Ketorolac Tromethamine 15 Mg/Ml Vial) 15 mg IV Q6H PRN PRN Reason: moderate to severe pain Stop: 08/26/21 21:58 Last Admin: 08/25/21 08:04 Dose: 15 mg Documented by: Lidocaine (Lidocaine 5% 1 Patch) 1 patch TD HS [facility] Stop: 09/20/21 21:44 Last Admin: 08/24/21 20:16 Dose: 1 patch Documented by: Metoprolol Succinate (Metoprolol Succ 25mg Ext Rel Tab) 25 mg PO DAILY [facility] Stop: 09/21/21 08:59 Last Admin: 08/25/21 08:43 Dose: 25 mg Documented by: Miscellaneous (Remove Lidoderm Patch) 1 ea N/A QAM [facility] Stop: 09/21/21 08:59 Last Admin: 08/25/21 08:44 Dose: 1 ea Documented by: Miscellaneous (Carbohydrates For Hypoglycemia ) 15 - 30 gm PO UD PRN PRN Reason: Hypoglycemia Protocol Stop: 09/20/21 21:58 Multivitamins (Multivitamin Tab) 1 tab PO DAILY [facility] Stop: 09/21/21 08:59 Last Admin: 08/25/21 08:42 Dose: 1 tab Documented by: Sertraline HCl (Sertraline Hcl 50 Mg Tablet) 25 mg PO DAILY [facility] Stop: 09/21/21 08:59 Last Admin: 08/25/21 08:43 Dose: 25 mg Documented by: Vitamin D (Cholecalciferol 1,000 Units 25 Mcg Tab) 1,000 units PO DAILY [facility] Stop: 09/21/21 08:59 Last Admin: 08/25/21 08:41 Dose: 1,000 units Documented by: (1) Fracture of rib of left side Encounter type: initial encounter Fracture type: closed Rib fracture type: multiple ribs Qualified Code(s): S22.42XA - Multiple fractures of ribs, left side, initial encounter for closed fracture (2) Fall Encounter type: initial encounter Qualified Code(s): W19.XXXA - Unspecified fall, initial encounter (3) Bilateral sacral insufficiency fracture Encounter type: initial encounter Qualified Code(s): M84.48XA - Pathological fracture, other site, initial encounter for fracture
[2021-08-25] MEDS: LIDOCAINE 5% 1 PATCH TD SCH (19:48)
[2021-08-25] MEDS: ACETAMINOPHEN 500 MG TAB PO SCH (21:04)
[2021-08-25] MEDS: traMADol HCL 50 MG TABLET PO PRN (21:06)
[2021-08-26] MEDS: traMADol HCL 50 MG TABLET PO PRN ×2 (03:59→17:17)
[2021-08-26] MEDS: ACETAMINOPHEN 500 MG TAB PO SCH ×3 (05:45→20:53)
[2021-08-26] MEDS: FERROUS SULFATE 325 MG TAB PO SCH ×2 (09:16→17:17)
[2021-08-26] MEDS: cephALEXin 500 MG CAP PO SCH ×2 (09:17→20:53)
[2021-08-26] MEDS: CHOLECALCIFEROL 1,000 UNITS 25 MCG TAB PO SCH (09:17)
[2021-08-26] MEDS: ENOXAPARIN INJ 30 MG/0.3 ML SYR SQ SCH (09:17)
[2021-08-26] MEDS: MULTIVITAMIN TAB PO SCH (09:18)
[2021-08-26] MEDS: GABAPENTIN 100 MG CAP PO SCH ×2 (09:18→14:20)
[2021-08-26] MEDS: METOPROLOL SUCC 25MG EXT REL TAB PO SCH (09:18)
[2021-08-26] MEDS: SERTRALINE HCL 50 MG TABLET PO SCH (09:19)
[2021-08-26] MEDS: INSULIN ASPART PER UNIT SC SCH ×3 (09:24→16:51)
--- NOTE | 2021-08-26 16:54 | Hospitalist Progress Note ---
Date of Service August 26, 2021 Assessment & Plan (1) Ambulatory dysfunction: Plan: Ambulating independently and a very active lady until she fell and suffered a sacral insufficiency fracture. She has persistent pain and issues with mobility as a result of this and now has fallen at home with additional traumatic rib fractures causing additional pain and mobility issues. Cont supportive care with scheduled APAP, PRN tramadol. Increased her gabapentin today, added additional lidocaine patch to tailbone area(there is one on her left ribs now), ice/heat for comfort. (2) Fall: Plan: Mechanical fall at home recurrent. Patient needs better pain control first prior to discharge to rehab in order to be able to participate. Cont care plan above. Awaiting placement to SNF (3) Fracture of rib of left side: Plan: sequelae of mechanical fall, no PTX or hemothorax and healing well. Cont supportive care. (4) Bilateral sacral insufficiency fracture: Plan: nonoperable, supportive care, rehab (5) Complicated UTI (urinary tract infection): Plan: UA positive for leukocytes and bacteria Currently on Ceftriaxone IV Urine cx grew proteus mirabilis Transition to PO keflex, will complete the course (6) DMII (diabetes mellitus, type 2): Plan: A1C is 6.6 so she has DMII but is not on medication for this. Stop carb coverage and glargine at this time. Cont with corrective insulin only as needed with loose coverage. She will discuss further treatment options with her PCP as outpatient. (7) Anemia: Plan: chronic, stable. cont monitoring. (8) DVT prophylaxis: Plan: Lovenox Full Code Dispo-awaiting placement Carin Frias DO [facility] Hospitalist Admission and Anticipated Discharge Date Admission Date: August 21, 2021 Subjective 70 yo F admitted for persistent ambulatory dysfunction after a hip surgery in the past and recurrent falls with associated trauma. She has pain wtih movement in her ribs and in her tailbone from fractures associated wtih falls still reporting pain which is expected better wtih rest, hurts wtih movement able to get up to bedside commode reports current regimen of APAP/tramadol is helping her move easier. Review of Systems Review of Systems: All systems were reviewed and negative except as indicated in subjective abov.e Physical Exam Physical Exam: CONSTITUTIONAL: WNWD, vitals as above, generally well- appearing, +mod distress wtih any movement outside of a supine position with slightly raised HOB EYES: normal conjunctivae, no scleral icterus ENT: external ear and nose normal, MMM NECK: trachea midline RESPIRATORY: clear to auscultation bilaterally, no crackles, rales or wheezes, normal respiratory effort CARDIOVASCULAR: regular rate and rhythm, S1 and 2 heard without murmurs, gallops or rubs, no JVD, no peripheral edema GASTROINTESTINAL: soft, nontender, ND, no guarding MUSCULOSKELETAL: strength 5/5 throughout, head is normocephalic and atraumatic SKIN: warm and dry NEUROLOGIC: CN 2-12 grossly intact, no sensory deficit, normal cognition, normal speech, no tremor PSYCHIATRIC: alert cooperative and oriented to person, place and time. Euthymic mood, makes good eye contact, language grossly intact, recent and remote memory grossly intact. Results & Data Results & Data ([facility]) Vital Signs (Past 12 Hours) Vital Signs Temp Pulse Resp BP Pulse Ox 08/26/21 14:43 36.4 C L 66 16 125/76 95 08/26/21 09:16 88 141/76 H 08/26/21 07:20 36.6 C 73 16 115/66 96 Medications Administered Current Inpatient Medications Acetaminophen (Acetaminophen 500 Mg Tab) 1,000 mg PO Q8H [facility] Stop: 09/24/21 20:59 Last Admin: 08/26/21 14:20 Dose: 1,000 mg Documented by: Cephalexin HCl (Cephalexin 500 Mg Cap) 500 mg PO BID [facility] Stop: 09/02/21 20:59 Last Admin: 08/26/21 09:17 Dose: 500 mg Documented by: Dextrose (Dextrose 50% 50 Ml Syringe) 25 - 50 ml IV UD PRN; Protocol PRN Reason: Hypoglycemia Protocol Stop: 09/20/21 21:58 Enoxaparin Sodium (Enoxaparin Inj 30 Mg/0.3 Ml Syr) 30 mg SQ QAM [facility] Stop: 09/21/21 08:59 Last Admin: 08/26/21 09:17 Dose: 30 mg Documented by: Ferrous Sulfate (Ferrous Sulfate 325 Mg Tab) 325 mg PO BIDM [facility] Stop: 09/21/21 07:59 Last Admin: 08/26/21 09:16 Dose: 325 mg Documented by: Gabapentin (Gabapentin 100 Mg Cap) 100 mg PO TID [facility] Stop: 09/20/21 21:58 Last Admin: 08/26/21 14:20 Dose: 100 mg Documented by: Glucagon (Glucagon For Inj 1 Mg Vial) 1 mg SQ UD PRN; Protocol PRN Reason: Hypoglycemia Protocol Stop: 09/20/21 21:58 Glucose (Glucose 10 Tabs/Tube) 4 - 8 tabs PO UD PRN; Protocol PRN Reason: Hypoglycemia Protocol Stop: 09/20/21 21:58 Glucose (Glucose 40% Gel 15 Gm Tube) 15 - 30 gm PO UD PRN; Protocol PRN Reason: Hypoglycemia Protocol Stop: 09/20/21 21:58 Promethazine HCl 6.25 mg/ (Sodium Chloride) 50.25 mls @ 201 mls/hr IV Q6H PRN PRN Reason: Nausea And Vomiting Stop: 09/20/21 21:58 Ibuprofen (Ibuprofen 200 Mg Tab) 200 mg PO Q6H PRN PRN Reason: Mild Pain Stop: 09/20/21 21:58 Insulin Aspart (Insulin Aspart Per Unit) 0 units SC ACHS [facility] Stop: 09/20/21 21:58 Last Admin: 08/26/21 16:51 Dose: Not Given Documented by: Ketorolac Tromethamine (Ketorolac Tromethamine 15 Mg/Ml Vial) 15 mg IV Q6H PRN PRN Reason: moderate to severe pain Stop: 08/26/21 21:58 Last Admin: 08/25/21 08:04 Dose: 15 mg Documented by: Lidocaine (Lidocaine 5% 1 Patch) 1 patch TD HS [facility] Stop: 09/20/21 21:44 Last Admin: 08/25/21 19:48 Dose: 1 patch Documented by: Metoprolol Succinate (Metoprolol Succ 25mg Ext Rel Tab) 25 mg PO DAILY [facility] Stop: 09/21/21 08:59 Last Admin: 08/26/21 09:18 Dose: 25 mg Documented by: Miscellaneous (Remove Lidoderm Patch) 1 ea N/A QAM [facility] Stop: 09/21/21 08:59 Last Admin: 08/26/21 09:19 Dose: 1 ea Documented by: Miscellaneous (Carbohydrates For Hypoglycemia ) 15 - 30 gm PO UD PRN PRN Reason: Hypoglycemia Protocol Stop: 09/20/21 21:58 Multivitamins (Multivitamin Tab) 1 tab PO DAILY [facility] Stop: 09/21/21 08:59 Last Admin: 08/26/21 09:18 Dose: 1 tab Documented by: Sertraline HCl (Sertraline Hcl 50 Mg Tablet) 25 mg PO DAILY [facility] Stop: 09/21/21 08:59 Last Admin: 08/26/21 09:19 Dose: 25 mg Documented by: Tramadol HCl (Tramadol Hcl 50 Mg Tablet) 50 mg PO Q4H PRN PRN Reason: severe breakthrough pain Stop: 09/24/21 19:30 Last Admin: 08/26/21 03:59 Dose: 50 mg Documented by: Vitamin D (Cholecalciferol 1,000 Units 25 Mcg Tab) 1,000 units PO DAILY [facility] Stop: 09/21/21 08:59 Last Admin: 08/26/21 09:17 Dose: 1,000 units Documented by: (1) Fracture of rib of left side Encounter type: initial encounter Fracture type: closed Rib fracture type: multiple ribs Qualified Code(s): S22.42XA - Multiple fractures of ribs, left side, initial encounter for closed fracture (2) Bilateral sacral insufficiency fracture Encounter type: initial encounter Qualified Code(s): M84.48XA - Pathological fracture, other site, initial encounter for fracture (3) Fall Encounter type: initial encounter Qualified Code(s): W19.XXXA - Unspecified fall, initial encounter
[2021-08-26] MEDS: LIDOCAINE 5% 1 PATCH TD SCH (20:52)
[2021-08-26] MEDS: GABAPENTIN 300 MG CAP PO SCH (20:53)
[2021-08-27] MEDS: ACETAMINOPHEN 500 MG TAB PO SCH ×3 (05:38→20:42)
[2021-08-27] MEDS: GABAPENTIN 300 MG CAP PO SCH ×2 (08:26→20:43)
[2021-08-27] MEDS: MULTIVITAMIN TAB PO SCH (08:26)
[2021-08-27] MEDS: traMADol HCL 50 MG TABLET PO PRN ×3 (08:26→19:30)
[2021-08-27] MEDS: SERTRALINE HCL 50 MG TABLET PO SCH (08:26)
[2021-08-27] MEDS: CHOLECALCIFEROL 1,000 UNITS 25 MCG TAB PO SCH (08:26)
[2021-08-27] MEDS: METOPROLOL SUCC 25MG EXT REL TAB PO SCH (08:26)
[2021-08-27] MEDS: cephALEXin 500 MG CAP PO SCH ×2 (08:26→20:43)
[2021-08-27] MEDS: ENOXAPARIN INJ 30 MG/0.3 ML SYR SQ SCH (08:26)
[2021-08-27] MEDS ORDERED: cefTRIAXone SODIUM 1,000 MG in DEXTROSE 5% 50 ML IV SCH (09:15)
--- NOTE | 2021-08-27 12:22 | Hospitalist Progress Note ---
Date of Service August 27, 2021 Assessment & Plan (1) Ambulatory dysfunction: Plan: Ambulatory dysfunction Sacral insufficiency fracture Traumatic rib fractures Secondary to fall No surgical intervention recommended Continue supportive care with Pain control, gabapentin PT/OT Fall precuations (2) Fall: Plan: Recurrent Mechanical falls Awaiting placement to SNF (3) Fracture of rib of left side: Plan: Secondary to mechanical fall No Pneumothorax or hemothorax and healing well Continue supportive care (4) Bilateral sacral insufficiency fracture: Plan: Nonoperable, supportive care, rehab (5) Complicated UTI (urinary tract infection): Plan: Urine cx grew proteus mirabilis IV Ceftriaxone transitioned to PO keflex (6) DMII (diabetes mellitus, type 2): Plan: HbA1C is 6.6 Not on meds Continue ISS (7) Anemia: Plan: chronic, stable Monitor (8) DVT prophylaxis: Plan: Lovenox SQ Code Status Full Code Disposition SNF when accepted Admission and Anticipated Discharge Date Admission Date: August 21, 2021 Subjective Patient is seen and examined at bedside States having hip, back pain with movement Also reports having dysuria, nausea Denies any chest pain, shortness of breath, dizziness Offers no other complaints Review of Systems Review of Systems: All systems reviewed & are unremarkable except as noted in Subjective Physical Exam Physical Exam: Physical Exam: Vitals signs as noted above General Appearance:Thin, frail, no apparent distress Head: normocephalic, Atraumatic Eyes: normal inspection, EOMI Neck: supple, Trachea midline Respiratory/Chest: Normal breath sounds, CTA, No accessory muscle use Cardiovascular: S1, S2, No murmur Abdomen/GI:Soft, Non tender, Bowel sounds present Extremities/Musculoskeletal:normal inspection, no edema Neurologic/Psych:AAOX3, grossly no focal neurological deficits Skin: normal color, warm Results & Data Results & Data ([facility]) Vital Signs (Past 12 Hours) Vital Signs Temp Pulse Resp BP Pulse Ox 08/27/21 08:00 36.6 C 77 16 113/72 97 (1) Fracture of rib of left side Encounter type: initial encounter Fracture type: closed Rib fracture type: multiple ribs Qualified Code(s): S22.42XA - Multiple fractures of ribs, left side, initial encounter for closed fracture (2) Bilateral sacral insufficiency fracture Encounter type: initial encounter Qualified Code(s): M84.48XA - Pathological fracture, other site, initial encounter for fracture (3) Fall Encounter type: initial encounter Qualified Code(s): W19.XXXA - Unspecified fall, initial encounter
[2021-08-27] MEDS: GABAPENTIN 100 MG CAP PO SCH (12:37)
[2021-08-27] MEDS: LIDOCAINE 5% 1 PATCH TD SCH (20:43)
[2021-08-28] MEDS: ACETAMINOPHEN 500 MG TAB PO SCH ×3 (05:27→20:06)
[2021-08-28] MEDS: traMADol HCL 50 MG TABLET PO PRN ×2 (05:27→15:09)
[2021-08-28] MEDS: cephALEXin 500 MG CAP PO SCH ×2 (07:59→20:07)
[2021-08-28] MEDS: GABAPENTIN 300 MG CAP PO SCH ×2 (07:59→20:07)
[2021-08-28] MEDS: MULTIVITAMIN TAB PO SCH (07:59)
[2021-08-28] MEDS: SERTRALINE HCL 50 MG TABLET PO SCH (07:59)
[2021-08-28] MEDS: CHOLECALCIFEROL 1,000 UNITS 25 MCG TAB PO SCH (07:59)
[2021-08-28] MEDS: METOPROLOL SUCC 25MG EXT REL TAB PO SCH (07:59)
[2021-08-28] MEDS: ENOXAPARIN INJ 30 MG/0.3 ML SYR SQ SCH (08:00)
[2021-08-28] MEDS: GABAPENTIN 100 MG CAP PO SCH (13:15)
--- NOTE | 2021-08-28 17:08 | Hospitalist Progress Note ---
Date of Service August 28, 2021 Assessment & Plan (1) Ambulatory dysfunction: Plan: Ambulatory dysfunction Sacral insufficiency fracture Traumatic rib fractures Secondary to fall No surgical intervention recommended Continue supportive care with Pain control, gabapentin PT/OT: Needs SNF placement Fall precautions Plan to discharge to SNF as able (2) Fall: Plan: Recurrent Mechanical falls Awaiting placement to SNF (3) Fracture of rib of left side: Plan: Secondary to mechanical fall No Pneumothorax or hemothorax and healing well Continue supportive care (4) Bilateral sacral insufficiency fracture: Plan: Nonoperable, supportive care, rehab (5) Complicated UTI (urinary tract infection): Plan: Urine cx grew proteus mirabilis IV Ceftriaxone transitioned to PO keflex (6) DMII (diabetes mellitus, type 2): Plan: HbA1C is 6.6 Not on meds Continue ISS (7) Anemia: Plan: chronic, stable Monitor (8) DVT prophylaxis: Plan: Lovenox SQ Code Status Full Code Disposition SNF when accepted Admission and Anticipated Discharge Date Admission Date: August 21, 2021 Subjective Patient is seen and examined at bedside No significant change from yesterday Continues to complain of fracture pain Denies any chest pain, shortness of breath, dizziness Offers new complaints Review of Systems Review of Systems: All systems reviewed & are unremarkable except as noted in Subjective Physical Exam Physical Exam: Physical Exam: Vitals signs as noted above General Appearance:Thin, frail, no apparent distress Head: normocephalic, Atraumatic Eyes: normal inspection, EOMI Neck: supple, Trachea midline Respiratory/Chest: Normal breath sounds, CTA, No accessory muscle use Cardiovascular: S1, S2, No murmur Abdomen/GI:Soft, Non tender, Bowel sounds present Extremities/Musculoskeletal:normal inspection, no edema Neurologic/Psych:AAOX3, grossly no focal neurological deficits Skin: normal color, warm Results & Data Results & Data ([facility]) Vital Signs (Past 12 Hours) Vital Signs Temp Pulse Resp BP Pulse Ox 08/28/21 07:13 36.6 C 78 16 109/62 96 (1) Fall Encounter type: initial encounter Qualified Code(s): W19.XXXA - Unspecified fall, initial encounter (2) Fracture of rib of left side Encounter type: initial encounter Fracture type: closed Rib fracture type: multiple ribs Qualified Code(s): S22.42XA - Multiple fractures of ribs, left side, initial encounter for closed fracture (3) Bilateral sacral insufficiency fracture Encounter type: initial encounter Qualified Code(s): M84.48XA - Pathological fracture, other site, initial encounter for fracture
[2021-08-28] MEDS: LIDOCAINE 5% 1 PATCH TD SCH (20:07)
[2021-08-29] MEDS: ACETAMINOPHEN 500 MG TAB PO SCH ×3 (05:17→20:01)
[2021-08-29] MEDS: METOPROLOL SUCC 25MG EXT REL TAB PO SCH (08:10)
[2021-08-29] MEDS: GABAPENTIN 300 MG CAP PO SCH ×2 (08:10→20:02)
[2021-08-29] MEDS: CHOLECALCIFEROL 1,000 UNITS 25 MCG TAB PO SCH (08:10)
[2021-08-29] MEDS: MULTIVITAMIN TAB PO SCH (08:10)
[2021-08-29] MEDS: ENOXAPARIN INJ 30 MG/0.3 ML SYR SQ SCH (08:10)
[2021-08-29] MEDS: cephALEXin 500 MG CAP PO SCH ×2 (08:10→20:01)
[2021-08-29] MEDS: SERTRALINE HCL 50 MG TABLET PO SCH (08:11)
[2021-08-29 09:14] LABS: Hematocrit (blood only) 35.6 % (37-47); Hemoglobin 11.2 g/dL (12.0-16.0); Mean Corpuscular Hemoglobin 27.9 pg (25-34); Mean Corpuscular Hgb Conc 31.5 g/dL (32-36); Mean Corpuscular Volume 88.6 fL (80-100); Mean Platelet Volume 9.6 fL (7.4-10.4); Platelet Count 368 K/uL (130-400); RDW Coefficient of Variation 14.3 % (11.5-14.5); RDW Standard Deviation 46.4 fL (36.4-46.3); Red Blood Count 4.02 M/uL (4.2-5.4); White Blood Count 5.12 K/uL (4.8-10.8)
[2021-08-29 09:39] LABS: BUN Creatinine Ratio 33.3 (10-20); Creatinine Clr Calc Pharmacy 59.3 ml/min; Est GFR (African American) 108.9 ml/min; Est GFR (Non-African American) 93.9 ml/min; Potassium 4.1 mmol/L (3.5-5.1)
[2021-08-29] MEDS: GABAPENTIN 100 MG CAP PO SCH (13:17)
[2021-08-29] MEDS: traMADol HCL 50 MG TABLET PO PRN (18:28)
--- NOTE | 2021-08-29 19:07 | Hospitalist Progress Note ---
Date of Service August 29, 2021 Assessment & Plan (1) Ambulatory dysfunction: Plan: Ambulatory dysfunction Sacral insufficiency fracture Traumatic rib fractures Secondary to fall No surgical intervention recommended Continue supportive care with Pain control, gabapentin PT/OT: Needs SNF placement Fall precautions Waiting for SNF Placement (2) Fall: Plan: Recurrent Mechanical falls Fall precautions (3) Fracture of rib of left side: Plan: Secondary to mechanical fall No Pneumothorax or hemothorax and healing well Continue supportive care (4) Bilateral sacral insufficiency fracture: Plan: Nonoperable, supportive care, rehab (5) Complicated UTI (urinary tract infection): Plan: Urine cx grew proteus mirabilis IV Ceftriaxone transitioned to PO keflex (6) DMII (diabetes mellitus, type 2): Plan: HbA1C is 6.6 Not on meds Continue ISS (7) Anemia: Plan: chronic, stable Monitor (8) DVT prophylaxis: Plan: Lovenox SQ Code Status Full Code Disposition SNF when accepted Admission and Anticipated Discharge Date Admission Date: August 21, 2021 Subjective Patient is seen and examined at bedside Waiting for placement Pain at fracture site in controlled Denies any chest pain, shortness of breath, dizziness Review of Systems Review of Systems: All systems reviewed & are unremarkable except as noted in Subjective Physical Exam Physical Exam: Physical Exam: Vitals signs as noted above General Appearance:Thin, frail, no apparent distress Head: normocephalic, Atraumatic Eyes: normal inspection, EOMI Neck: supple, Trachea midline Respiratory/Chest: Normal breath sounds, CTA, No accessory muscle use Cardiovascular: S1, S2, No murmur Abdomen/GI:Soft, Non tender, Bowel sounds present Extremities/Musculoskeletal:normal inspection, no edema Neurologic/Psych:AAOX3, grossly no focal neurological deficits Skin: normal color, warm Results & Data Results & Data ([facility]) Vital Signs (Past 12 Hours) Vital Signs Temp Pulse Resp BP Pulse Ox 08/29/21 16:13 36.8 C 72 18 108/68 93 08/29/21 07:30 36.6 C 79 16 126/75 95 Laboratory Results Short CBC 08/29/21 Range/Units 07:43 WBC 5.12 (4.8-10.8) K/uL Hgb 11.2 L (12.0-16.0) g/dL Hct 35.6 L (37-47) % Plt Count 368 (130-400) K/uL BMP 08/29/21 07:43 Sodium 140 Potassium 4.1 Chloride 103 Carbon Dioxide 30 BUN 19 Creatinine 0.57 L Glucose 109 H Calcium 9.0 (1) Fall Encounter type: initial encounter Qualified Code(s): W19.XXXA - Unspecified fall, initial encounter (2) Fracture of rib of left side Encounter type: initial encounter Fracture type: closed Rib fracture type: multiple ribs Qualified Code(s): S22.42XA - Multiple fractures of ribs, left side, initial encounter for closed fracture (3) Bilateral sacral insufficiency fracture Encounter type: initial encounter Qualified Code(s): M84.48XA - Pathological fracture, other site, initial encounter for fracture
[2021-08-29] MEDS: LIDOCAINE 5% 1 PATCH TD SCH (20:01)
[2021-08-30] MEDS: ACETAMINOPHEN 500 MG TAB PO SCH ×3 (05:56→20:15)
[2021-08-30] MEDS: traMADol HCL 50 MG TABLET PO PRN ×2 (08:21→15:23)
[2021-08-30] MEDS: ENOXAPARIN INJ 30 MG/0.3 ML SYR SQ SCH (08:22)
[2021-08-30] MEDS: cephALEXin 500 MG CAP PO SCH ×2 (08:22→20:15)
[2021-08-30] MEDS: CHOLECALCIFEROL 1,000 UNITS 25 MCG TAB PO SCH (08:22)
[2021-08-30] MEDS: GABAPENTIN 300 MG CAP PO SCH ×2 (08:22→20:15)
[2021-08-30] MEDS: MULTIVITAMIN TAB PO SCH (08:23)
[2021-08-30] MEDS: METOPROLOL SUCC 25MG EXT REL TAB PO SCH (08:23)
[2021-08-30] MEDS: SERTRALINE HCL 50 MG TABLET PO SCH (08:24)
[2021-08-30] MEDS: GABAPENTIN 100 MG CAP PO SCH (13:09)
--- NOTE | 2021-08-30 17:43 | Hospitalist Progress Note ---
Date of Service August 30, 2021 Assessment & Plan (1) Ambulatory dysfunction: Plan: Ambulatory dysfunction Sacral insufficiency fracture Traumatic rib fractures Secondary to fall No surgical intervention recommended Continue supportive care with Pain control, gabapentin PT/OT: Needs SNF placement Fall precautions Waiting for SNF Placement Case management to help with discharge planning (2) Fall: Plan: Recurrent Mechanical falls Fall precautions (3) Fracture of rib of left side: Plan: Secondary to mechanical fall No Pneumothorax or hemothorax and healing well Continue supportive care (4) Bilateral sacral insufficiency fracture: Plan: Nonoperable, supportive care, rehab (5) Complicated UTI (urinary tract infection): Plan: Urine cx grew proteus mirabilis IV Ceftriaxone transitioned to PO keflex Will complete Keflex course tomorrow (6) DMII (diabetes mellitus, type 2): Plan: HbA1C is 6.6 Not on meds Continue ISS (7) Anemia: Plan: chronic, stable Monitor (8) DVT prophylaxis: Plan: Lovenox SQ Code Status Full Code Disposition SNF when accepted Admission and Anticipated Discharge Date Admission Date: August 21, 2021 Subjective Patient is seen and examined at bedside States having back pain Waiting for placement Denies any chest pain, shortness of breath, dizziness Review of Systems Review of Systems: All systems reviewed & are unremarkable except as noted in Subjective Physical Exam Physical Exam: Physical Exam: Vitals signs as noted above General Appearance:Thin, frail, no apparent distress Head: normocephalic, Atraumatic Eyes: normal inspection, EOMI Neck: supple, Trachea midline Respiratory/Chest: Normal breath sounds, CTA, No accessory muscle use Cardiovascular: S1, S2, No murmur Abdomen/GI:Soft, Non tender, Bowel sounds present Extremities/Musculoskeletal:normal inspection, no edema Neurologic/Psych:AAOX3, grossly no focal neurological deficits Skin: normal color, warm Results & Data Results & Data ([facility]) Vital Signs (Past 12 Hours) Vital Signs Temp Pulse Resp BP Pulse Ox 08/30/21 15:17 36.7 C 75 18 97/63 L 95 08/30/21 07:09 36.8 C 74 18 113/75 95 (1) Fall Encounter type: initial encounter Qualified Code(s): W19.XXXA - Unspecified fall, initial encounter (2) Fracture of rib of left side Encounter type: initial encounter Fracture type: closed Rib fracture type: multiple ribs Qualified Code(s): S22.42XA - Multiple fractures of ribs, left side, initial encounter for closed fracture (3) Bilateral sacral insufficiency fracture Encounter type: initial encounter Qualified Code(s): M84.48XA - Pathological fracture, other site, initial encounter for fracture
[2021-08-30] MEDS: LIDOCAINE 5% 1 PATCH TD SCH (20:14)
[2021-08-31] MEDS: ACETAMINOPHEN 500 MG TAB PO SCH ×2 (05:36→13:24)
[2021-08-31] MEDS: METOPROLOL SUCC 25MG EXT REL TAB PO SCH (09:29)
[2021-08-31] MEDS: cephALEXin 500 MG CAP PO SCH (09:30)
[2021-08-31] MEDS: SERTRALINE HCL 50 MG TABLET PO SCH (09:30)
[2021-08-31] MEDS: CHOLECALCIFEROL 1,000 UNITS 25 MCG TAB PO SCH (09:30)
[2021-08-31] MEDS: MULTIVITAMIN TAB PO SCH (09:30)
[2021-08-31] MEDS: GABAPENTIN 300 MG CAP PO SCH (09:31)
[2021-08-31] MEDS: ENOXAPARIN INJ 30 MG/0.3 ML SYR SQ SCH (09:31)
--- NOTE | 2021-08-31 11:36 | Hospitalist Progress Note ---
Date of Service August 31, 2021 Assessment & Plan (1) Ambulatory dysfunction: Plan: Ambulatory dysfunction Sacral insufficiency fracture Traumatic rib fractures Secondary to fall No surgical intervention recommended Continue supportive care with Pain control, gabapentin PT/OT: Needs SNF placement Fall precautions Rehab today (2) Fall: Plan: Recurrent Mechanical falls Fall precautions (3) Fracture of rib of left side: Plan: Secondary to mechanical fall No Pneumothorax or hemothorax and healing well Continue supportive care (4) Bilateral sacral insufficiency fracture: Plan: Nonoperable, supportive care, rehab (5) Complicated UTI (urinary tract infection): Plan: Urine cx grew proteus mirabilis IV Ceftriaxone transitioned to PO Keflex Completed Keflex course (6) DMII (diabetes mellitus, type 2): Plan: HbA1C is 6.6 Not on meds Continue ISS (7) Anemia: Plan: chronic, stable Monitor (8) DVT prophylaxis: Plan: Lovenox SQ Code Status Full Code Disposition SNF Admission and Anticipated Discharge Date Admission Date: August 21, 2021 Subjective Patient is seen and examined at bedside Back pain is controlled Denies any chest pain, shortness of breath, dizziness Plan to discharge to Rehab facility today Review of Systems Review of Systems: All systems reviewed & are unremarkable except as noted in Subjective Physical Exam Physical Exam: Physical Exam: Vitals signs as noted above General Appearance:Thin, frail, no apparent distress Head: normocephalic, Atraumatic Eyes: normal inspection, EOMI Neck: supple, Trachea midline Respiratory/Chest: Normal breath sounds, CTA, No accessory muscle use Cardiovascular: S1, S2, No murmur Abdomen/GI:Soft, Non tender, Bowel sounds present Extremities/Musculoskeletal:normal inspection, no edema Neurologic/Psych:AAOX3, grossly no focal neurological deficits Skin: normal color, warm Results & Data Results & Data ([facility]) Vital Signs (Past 12 Hours) Vital Signs Temp Pulse Resp BP Pulse Ox 08/31/21 07:14 36.7 C 79 12 106/70 97 (1) Fall Encounter type: initial encounter Qualified Code(s): W19.XXXA - Unspecified fall, initial encounter (2) Fracture of rib of left side Encounter type: initial encounter Fracture type: closed Rib fracture type: multiple ribs Qualified Code(s): S22.42XA - Multiple fractures of ribs, left side, initial encounter for closed fracture (3) Bilateral sacral insufficiency fracture Encounter type: initial encounter Qualified Code(s): M84.48XA - Pathological fracture, other site, initial encounter for fracture
--- NOTE | 2021-08-31 11:44 | Discharge Summary ---
Date of Service August 31, 2021 Admission HPI Per Admitting Provider History obtained from patient, family, and records. Medical history significant for hypertension, anxiety/mood disorder, DM2 diet- controlled, chronic lung disease as per records, chronic anemia (baseline hemoglobin of 11), history sacral fracture/ambulatory dysfunction, past tobacco abuse. Recent confinement at [facility] last month for sacral fracture secondary to fall. No surgical intervention. Patient confined for 4 days then discharged to [facility] rehab facility in [place], [place] where she stayed the last 3 weeks. Patient family told she could be discharged home as patient able to walk with her walker. Patient discharged home 2 days ago. Patient unable to ambulate without assistance upon arrival at home as per daughter. Patient fell on her left side resulting in pleuritic left-sided chest pain with some shortness of breath. Patient not sure about head trauma. No LOC. Dysuria symptoms without abdominal/flank pain/hematuria/fever or chills. Patient brought to the ER for evaluation. Medical History as above Surgical History : BTL, hysterectomy, right hip surgery Family History : DM Personal/Social history : Past tobacco abuse, no EtOH intake, lives with her Admission Exam Per Admitting Provider Physical Exam Physical Exam: GENERAL: Slightly unccomfortable, slightly anxious, no respiratory distress SKIN: Normal color, warm HEENT: Bespectacled, [place] palpebral conjunctivae, no ptosis, dry buccal mucosa NECK : Supple, no tenderness CHEST : Decreased breath sounds, left chest wall tenderness HEART : RRR, no obvious murmurs ABDOMEN: Some distention, nontender EXTREMITIES : No LE swelling/tenderness, no other conspicuous deformities noted NEUROLOGIC : Coherent, no facial asymmetry, intention tremors, gait and stance not assessed Principal Diagnosis Ambulatory dysfunction Sacral insufficiency fracture Traumatic rib fractures Fall UTI Discharge Data Allergies Allergy/AdvReac Type Severity Reaction Status Date / Time aspirin Allergy Intermediate Rash Verified 08/21/21 17:00 Iodinated Contrast Media Allergy Intermediate Rash Verified 08/21/21 17:00 codeine AdvReac Intermediate altered Verified 08/21/21 17:00 mental status Consultations 08/21/21 18:43 ED Decision to Admit Stat Ordered Studies 08/21/21 16:41 CT abd pelvis wo con Stat CT cervical spine wo con Stat CT chest diagnostic wo con Stat CT head/brain wo con Stat CT lumbar spine wo con Stat Hospital Course (1) Ambulatory dysfunction: Ambulatory dysfunction Sacral insufficiency fracture Traumatic rib fractures Secondary to fall No surgical intervention recommended Continue supportive care with Pain control, gabapentin PT/OT: Needs SNF placement Fall precautions Rehab today (2) Fall: Recurrent Mechanical falls Fall precautions (3) Fracture of rib of left side: Secondary to mechanical fall No Pneumothorax or hemothorax and healing well Continue supportive care (4) Bilateral sacral insufficiency fracture: Nonoperable, supportive care, rehab (5) Complicated UTI (urinary tract infection): Urine cx grew proteus mirabilis IV Ceftriaxone transitioned to PO Keflex Completed Keflex course (6) DMII (diabetes mellitus, type 2): HbA1C is 6.6 Not on meds Continue ISS (7) Anemia: chronic, stable Monitor (8) DVT prophylaxis: Lovenox SQ Code Status Full Code Disposition SNF Total Time Total Time Spent Total Time Spent (In Minutes): 40 minutes Discharge Plan Discharge Items Patient Disposition: Transfer Residential Fac Reason For Visit: COMPLICATED UTI, RIB FX Discharge Diagnosis: Ambulatory dysfunction Sacral insufficiency fracture Traumatic rib fractures Fall UTI Activity: Per Instructions section Exercise/Sports: Gradually increase as tolerated Non-emergency contact: Primary Care Provider Call non-emergency contact if: you have any medication questions, your symptoms worsen, your pain is concerning for you and you have a fever Follow-up/Referrals: Brady Lee MD [Primary Care Provider] - Diet: Carb Consistent or DM2 Diet Texture: Easy to Chew Addtl Attending Provider Instructions: Follow-up with your primary care physician in 1 week upon discharge from ER physician Follow-up with your orthopedic surgeon in 4 weeks -- Continue Lovenox 30 mg daily for DVT prophylaxis. Seek immediate medical attention if your symptoms reoccur or worsen Please take all medications as instructed on discharge list below. Please call if you have any questions or problems. You can reach a [facility] hospitalist on duty at [facility] 24 hours a day by calling [phone] Pending Studies at Discharge: No Stand-Alone Forms: My [facility] Skilled Items Patient informed of condition?: Yes DNR: No Discharge Level of Care: Skilled Communicable Disease: No Discharge Prognosis: Stable Lines: None Urinary Catheter: No Medications and DC Order Prescriptions: New enoxaparin [Lovenox] 30 mg/0.3 mL Syringe 30 mg subcut QAM 30 Days Qty: 9 RF: 0 tramadol 50 mg Tablet 50 mg PO Q4H PRN (Reason: pain) Qty: 10 RF: 0 Continued multivitamin Tablet 1 tab PO DAILY RF: 0 sertraline 25 mg tablet 25 mg PO DAILY RF: 0 gabapentin 100 mg capsule 100 mg PO TID RF: 0 metoprolol succinate 25 mg tablet extended release 24 hr 25 mg PO DAILY RF: 0 cholecalciferol (vitamin D3) [Vitamin D3] 25 mcg (1,000 unit) Capsule 25 mcg PO DAILY RF: 0 ferrous sulfate 325 mg PO BID RF: 0 Discharge Orders: Discharge Order (Routine); Ordered 08/31/21 Ordered By: Connor Lagos/Other Patient Handouts: Managing Type 2 Diabetes Admission Data Admit Date/Time: 08/21/21 20:26 Attending Provider: Connor Garvin Admit Provider: Brady Joy Primary Care Provider: Brady Lee Other Providers: Carin Frias ; Lyman,Care
[2021-08-31] MEDS: GABAPENTIN 100 MG CAP PO SCH (13:24)
== END 2021-08-31 15:55 | DRG 690 ==
LOC: ED 16:07 → SUATTDRO 20:26 → INTOOBSV 20:26 → 3W 20:26